=== PATIENT | female | born 1995 | race Caucasian/White ===

== ENCOUNTER 2021-04-26 18:43 | Emergency (ER) | payer BC, OTHER, SELFPAY ==
[2021-04-26 18:58] VITALS: BP 124/68; PULSE 100; RESP 18; TEMP 36.4; O2SAT 98
[2021-04-26 19:36] LABS: Basophils Percent Auto 0.4 % (0.2-1.2); Eosinophils Absolute Auto 0.1 K/mm3 (0-0.3); Hematocrit 41.6 % (37.0-47.0); Hemoglobin 13.8 g/dL (12.0-15.0); Immature Granulocyte Absolute 0.03 K/mm3 (0.00-0.031); Immature Granulocyte Percent A 0.3 % (0-0.5); Lymphocytes Absolute Auto 3.29 K/mm3 (0.9-3.2); Lymphocytes Percent Auto 32.3 % (18.3-44.2); Mean Corpuscular HGB Conc 33.2 g/dl (32-36); Mean Corpuscular Hemoglobin 28.1 pg (26-34); Mean Corpuscular Volume 84.7 fl (80-100); Mean Platelet Volume 11.3 fl (7.4-10.4); Monocytes Absolute Auto 0.8 K/mm3 (0.1-0.6); Monocytes Percent Auto 7.7 % (2.6-8.5); Neutrophils Percent Auto 58.3 % (45.5-73.1); Platelet Count Result 304 k/mm3 (150-375); Red Blood Count 4.91 M/mm3 (4.2-5.4); Red Cell Distribution Width 12.6 % (11.5-14.5); White Blood Count 10.2 K/mm3 (4.5-10.0)
[2021-04-26 19:43] LABS: Alanine Aminotransferase 26 U/L (4-35); Albumin Level 4.3 g/dL (3.5-5.1); Alkaline Phosphatase 50 U/L (38-126); Anion Gap 6 mmol/L (8-16); Aspartate Amino Transferase 22 U/L (14-36); Bilirubin,Total 0.3 mg/dL (0.2-1.3); Blood Urea Nitrogen 11 mg/dL (7-17); Calcium 9.6 mg/dL (8.4-10.2); Carbon Dioxide 30 mmol/L (22-30); Chloride 100 mmol/L (98-107); Estimated CRCL calculation 138 ml/min; Estimated Glomerular Filt Rate > 60; Glucose 122 mg/dL (65-110); Lipase 53 U/L (23-300); Potassium 3.9 mmol/L (3.4-5.0); Sodium 136 mmol/L (137-145)
[2021-04-26 20:49] VITALS: BP 124/70; PULSE 89
[2021-04-26 20:50] LABS: Add Urine Microscopic? YES; Appearance Urine Cloudy (Clear); Bilirubin Urine Negative (Negative); Blood Urine Negative (Negative); Color Urine Yellow (Yellow); Glucose Urine UA Negative (Negative); Ketones Urine Negative (Negative); Leukocyte Esterase Ur Negative LEU/UL (Negative); Mucus Urine Rare /lpf; Nitrate Urine Negative (Negative); Protein Urine Negative (Negative); RBC Urine 0-2 /hpf (0-2); Specific Grav Ur 1.018 (1.001-1.035); Squamous Epithelial Cell Urine Few /hpf (Few); Urobilinogen Urine Negative mg/dL (<2.0); WBC Urine 0-3 /hpf
[2021-04-26 20:53] VITALS: BP 129/85; PULSE 91
[2021-04-26 20:54] VITALS: BP 114/79; PULSE 96
[2021-04-26 21:52] VITALS: BP 120/67; PULSE 85; RESP 18; O2SAT 100
[2021-04-26] MEDS: SODIUM CHLORIDE 0.9% IV 1,000 ML 999 ML IV CONT (21:54)
[2021-04-26] MEDS: METOCLOPRAMIDE HCL INJ 10 MG/2 ML VIAL IV PUSH (21:55)
[2021-04-26] MEDS: diphenhydrAMINE HCl INJ 50 MG/ML VIAL 25 MG IV PUSH (21:58)
--- NOTE | 2021-04-26 23:07 | ED.GENADULT ---
HPI - General Adult General Chief complaint: Nausea/Vomiting/Diarrhea Stated complaint: throwing up everything 6 weeks preg Time Seen by Provider: 04/26/21 21:12 History of Present Illness HPI narrative: Patient is 25-year-old female presents emergency department chief complaint of nausea vomiting headache. Patient reports that she is about 6 weeks and reports that since she found out she was she has been nauseated and has not really been keeping much fluid down. The patient states she is having no abdominal pain reports she does have an appointment with [facility] patient denies vaginal bleeding. Related Data Home Medications Medication Instructions Recorded Confirmed citalopram mg 04/26/21 04/26/21 Allergies Allergy/AdvReac Type Severity Reaction Status Date / Time ARTIFICIAL RUBBER AdvReac Intermediate BLISTERS Uncoded 04/26/21 20:48 Review of Systems Review of Systems: A 10 system review of systems was completed on the patient and is negative except for what is stated in the HPI. Nursing and ancillary documentation was reviewed. [facility] Family History Family History Grandparent Family history of heart disease in male family member before age 55 Other Family history of malignant neoplasm Social History Social History Smoking status: Never smoker Exam Narrative: GENERAL: Well-appearing, well-nourished, and in no acute distress. HEAD: Normocephalic, atraumatic. EYES: PERRLA and EOMI. ENT: Nares clear, no rhinorrhea or epistaxis. Mucous membranes moist. NECK: Supple. CHEST: Clear to auscultation. No respiratory distress. HEART: Regular rate and rhythm. No murmur heard. Normal peripheral pulses. ABDOMEN: Soft, nontender, nondistended, normal active bowel sounds. EXTREMITIES: Normal range of motion. No edema. SKIN: Warm, dry, no rash. NEURO: No focal deficits. Alert and oriented x3. PSYCH: Normal mood and affect. Course Vital Signs Vital signs: Vital Signs Temperature 36.4 C 04/26/21 18:58 Pulse Rate 100 04/26/21 18:58 Respiratory Rate 18 04/26/21 18:58 Blood Pressure 124/68 04/26/21 18:58 Pulse Oximetry 98 04/26/21 18:58 Temperature 36.4 C 04/26/21 18:58 Pulse Rate 85 04/26/21 21:52 Respiratory Rate 18 04/26/21 21:52 Blood Pressure 120/67 04/26/21 21:52 Pulse Oximetry 100 04/26/21 21:52 Medical Decision Making Vital Signs Vital Signs: Vital Signs Temperature 36.4 C 04/26/21 18:58 Pulse Rate 100 04/26/21 18:58 Respiratory Rate 18 04/26/21 18:58 Blood Pressure 124/68 04/26/21 18:58 Pulse Oximetry 98 04/26/21 18:58 Temperature 36.4 C 04/26/21 18:58 Pulse Rate 85 04/26/21 21:52 Respiratory Rate 18 04/26/21 21:52 Blood Pressure 120/67 04/26/21 21:52 Pulse Oximetry 100 04/26/21 21:52 Lab Data Result diagrams: 04/26/21 19:26 04/26/21 19:26 Labs: Lab Results 04/26/21 04/26/21 04/26/21 Range/Units 19:26 19:26 20:16 WBC 10.2 H (4.5-10.0) K/mm3 RBC 4.91 (4.2-5.4) M/mm3 Hgb 13.8 (12.0-15.0) g/dL Hct 41.6 (37.0-47.0) % MCV 84.7 (80-100) fl MCH 28.1 (26-34) pg MCHC 33.2 (32-36) g/dl RDW 12.6 (11.5-14.5) % Plt Count 304 (150-375) k/mm3 MPV 11.3 H (7.4-10.4) fl Immature Gran % (Auto) 0.3 (0-0.5) % Neut % (Auto) 58.3 (45.5-73.1) % Lymph % (Auto) 32.3 (18.3-44.2) % Osborne % (Auto) 7.7 (2.6-8.5) % Eos % (Auto) 1.0 (0-4.4) % Baso % (Auto) 0.4 (0.2-1.2) % Lymph # (Auto) 3.29 H (0.9-3.2) K/mm3 Osborne # (Auto) 0.8 H (0.1-0.6) K/mm3 Eos # (Auto) 0.1 (0-0.3) K/mm3 Baso # (Auto) 0.0 (0.0-0.1) K/mm3 Abs Immat Gran (auto) 0.03 (0.00-0.031) K/mm3 Absolute Neuts (auto) 6.0 (1.3-6.7) K/mm3 Absolute Nucleated RBC 0.0 (0.0-0.012) K/mm3 Nucleated RBC %
[2021-04-26 23:31] VITALS: BP 119/50; PULSE 88; RESP 18; O2SAT 100
== END 2021-04-26 23:32 | disposition home or self-care (01) ==
PROVIDERS: Emergency Medicine; Emergency Provider Emergency Medicine; PCP Family Medicine
DX: O26.891 Other specified pregnancy related conditions, first trimester (principal); R11.2 Nausea with vomiting, unspecified; Z3A.01 Less than 8 weeks gestation of pregnancy
CPT/HCPCS: 36415; 80053; 81001; 81025; 83690; 85025; 96361; 96374; 96375; 99284; J1200; J2765; J7030

== ENCOUNTER → 2021-05-17 12:08 | Outpatient (CLI) | payer BC, SELFPAY ==
--- NOTE | ~2021-05-17 | US_ITS ---
EXAMINATION: US thyroid EXAM DATE: 05/17/2021 12:25 INDICATION: Goiter TECHNIQUE: Multiple grayscale and Doppler images of the thyroid were obtained (by a technologist who performed the scan) and subsequently reviewed. Individual nodules and recommendations may be reporte d in accordance with TI-RADS system as designated by the 2017 ACR White Paper TI-RADS committee. The re is no prior study for comparison. FINDINGS: The right thyroid lobe measures 3.9 x 1.5 x 1.4 cm, the left measuring 3.9 x 1.5 x 1.6 cm. Mildly het erogeneous thyroid echogenicity without focal discrete nodule identified. Dimensions are within zee l size limits. IMPRESSION: 1. Unremarkable thyroid ultrasound exam. Reviewed, dictated and finalized at location A. BLACKER
== END ==
PROVIDERS: PCP Family Medicine; Visit Provider Internal Medicine Endocrinology, Diabetes & Metabolism
DX: E04.9 Nontoxic goiter, unspecified (principal)
CPT/HCPCS: 76536

== ENCOUNTER 2021-09-10 12:17 | Observation (INO) | payer OTHER, BC, SELFPAY ==
--- NOTE | 2021-10-02 10:17 | PM.OBTRLD ---
OB - Triage/Final Diagnosis Visit Information Comments/Additional reasons for admission: I have assessed the risk for this patient, Shu Valentine, and determined that she would benefit from observation care. Final Diagnosis (1) Fall (on) (from) unspecified stairs and steps, initial encounter: Code(s): W10.9XXA - Fall (on) (from) unspecified stairs and steps, initial encounter Status: Acute
== END 2021-09-10 14:10 | disposition home or self-care (01) ==
PROVIDERS: Admitting Provider Obstetrics & Gynecology; PCP Family Medicine; Visit Provider Obstetrics & Gynecology
DX: O99.891 Other specified diseases and conditions complicating pregnancy (principal); W10.9XXA Fall (on) (from) unspecified stairs and steps, initial encounter; Z3A.25 25 weeks gestation of pregnancy
CPT/HCPCS: G0378; G0379

== ENCOUNTER 2021-11-14 16:47 | Outpatient (CLI) | payer OTHER, BC, SELFPAY ==
[2021-11-14 17:40] VITALS: BP 104/69; PULSE 83
[2021-11-14 17:57] LABS: Basophils Percent Auto 0.3 % (0.2-1.2); Eosinophils Percent Auto 0.4 % (0-4.4); Hematocrit 37.2 % (37.0-47.0); Hemoglobin 11.5 g/dL (12.0-15.0); Immature Granulocyte Absolute 0.03 K/mm3 (0.00-0.031); Immature Granulocyte Percent A 0.4 % (0-0.5); Lymphocytes Absolute Auto 2.05 K/mm3 (0.9-3.2); Lymphocytes Percent Auto 26.1 % (18.3-44.2); Mean Corpuscular HGB Conc 30.9 g/dl (32-36); Mean Corpuscular Hemoglobin 25.8 pg (26-34); Mean Corpuscular Volume 83.4 fl (80-100); Monocytes Absolute Auto 0.6 K/mm3 (0.1-0.6); Monocytes Percent Auto 7.4 % (2.6-8.5); Neutrophils Absolute Auto 5.1 K/mm3 (1.3-6.7); Neutrophils Percent Auto 65.4 % (45.5-73.1); Platelet Count Result 220 k/mm3 (150-375); Red Blood Count 4.46 M/mm3 (4.2-5.4); Red Cell Distribution Width 14.2 % (11.5-14.5); White Blood Count 7.8 K/mm3 (4.5-10.0)
[2021-11-14 18:00] VITALS: BP 98/62; PULSE 86; TEMP 36.3
[2021-11-14 18:05] LABS: Alanine Aminotransferase 14 U/L (6-35); Albumin Level 3.5 g/dL (3.5-5.1); Alkaline Phosphatase 109 U/L (38-126); Anion Gap 6 mmol/L (8-16); Aspartate Amino Transferase 19 U/L (14-36); Bilirubin,Total 0.1 mg/dL (0.2-1.3); Blood Urea Nitrogen 8 mg/dL (7-17); Carbon Dioxide 23 mmol/L (22-30); Chloride 106 mmol/L (98-107); Estimated Glomerular Filt Rate > 60; Glucose 85 mg/dL (65-110); Potassium 4.2 mmol/L (3.4-5.0); Sodium 135 mmol/L (137-145); Uric Acid 3.9 mg/dL (2.5-7.5)
[2021-11-14 18:15] VITALS: BP 108/66; PULSE 78
[2021-11-14 18:16] LABS: Platelet Estimate Adequate (Adequate)
[2021-11-14 18:30] VITALS: BP 110/69; PULSE 83
[2021-11-14 18:36] LABS: Appearance Urine Slightly Cloudy (Clear); Bilirubin Urine Negative (Negative); Blood Urine Negative (Negative); Color Urine Yellow (Yellow); Glucose Urine UA Negative (Negative); Ketones Urine Negative (Negative); Leukocyte Esterase Ur 2+ LEU/UL (NEGATIVE); Nitrate Urine Negative (Negative); Protein Urine Negative (Negative); Urobilinogen Urine 0.2 mg/dL (<2.0); pH Urine 6.5 (5.0-9.0)
[2021-11-14 18:45] VITALS: BP 101/66; PULSE 90
[2021-11-14 18:54] LABS: Total Protein Urine Random 7 mg/dL; Ur Ttl Prot Creatinine Ratio 0.07 mg/mg (0-0.20)
[2021-11-14 19:00] VITALS: BP 106/62; PULSE 89
[2021-11-14] MEDS: ACETAMINOPHEN/BUTALBITAL/CAFFEINE 325-50-40 MG TABLET (FIORICET) 1 TAB PO (19:10)
[2021-11-14 19:12] LABS: Bacteria Urine Trace /hpf; Budding Yeast Urine Present /hpf; Mucus Urine Rare /lpf; Squamous Epithelial Cell Urine Many /hpf (Few); WBC Urine 31-50 /hpf (0-3)
--- NOTE | 2021-11-14 19:15 | PC.NURSE ---
Investigator Internal Affairs, Cici Yao updated on PT's PCR of 0.07. Ordered to discharge PT at this time.
[2021-11-14 19:23] LABS: Add Urine Microscopic? YES
--- NOTE | 2021-11-14 19:27 | PC.NURSE ---
PT given verbal discharge instructions along with Pre-Eclampsia pamphlets. This nurse discussed pamphlets with PT and support person. This nurse also discussed early signs of labor with PT and support person. PT verbalized understanding. PT discharged home at this time.
== END 2021-11-14 19:25 | disposition home or self-care (01) ==
LOC: ANHOBOP 16:58 → ANHOBPP 17:02
PROVIDERS: Advanced Practice Midwife; PCP Family Medicine; Visit Provider Obstetrics & Gynecology
DX: O13.9 Gestational [pregnancy-induced] hypertension without significant proteinuria, unspecified trimester (principal); Z3A.00 Weeks of gestation of pregnancy not specified
CPT/HCPCS: 36415; 59025; 80053; 81001; 82570; 84156; 84550; 85025; 85055; 87086; 87088; 99199; A9270

== ENCOUNTER 2021-12-11 05:54 | Inpatient (IN) | payer OTHER, BC, SELFPAY ==
[2021-12-11] VITALS (289 sets, daily range): BP systolic 77–146; BP diastolic 34–111; PULSE 66–201; RESP 16–18; TEMP 36.3–37.8; O2SAT 90–100; BMI 38.2
--- NOTE | 2021-12-11 05:54 | LDADM ---
This patient, Shu Valentine, was admitted to Labor/Delivery/Recovery 104 on 12/11/21 at 05:54. Plans for labor, pain management and were discussed with patient. Patient/family oriented to hospital policies and general routines including ID bracelet, bed and alarms, visiting hours, pain management, procedures, bathroom and other care routines, personal items, smoking policy, room service/diet and guest tray routines, security routines, and visiting hours. Patient/Family are encouraged to report perceived risks to care and to ask questions if they do not understand what they are told or what they should do. See OBIX for further documentation.
--- OUTSIDE RECORDS SUMMARY | 2021-12-11 06:00 | XMS_ITS | Encounter Summary ---
:1995 Author Care Team Providers Name Role Phone Yanna Carlos Freitas Primary Care Provider [phone] [employer] Referring Provider [phone] Amrita Sánchez MD Referring Provider [phone] Reason for Visit OB visit Assessment and Plan Assessment Note Patient is ___weeks . Discussed plan. 1. Routine care Discussion Note: None recorded.Patient educational handouts: No information available. Plan of Care Reminders Provider Appointments None recorded. ? ? Lab None recorded. ? ? Referral None recorded. ? ? Procedures None recorded. ? ? Surgeries None recorded. ? ? Imaging None recorded. ? ? Medications Name Start Date ? ? buspirone 15 mg tablet ? TAKE 1 TABLET BY MOUTH TWICE DAILY WITH MEALS citalopram 20 mg tablet ? Take 1 tablet every day by oral route. cyclobenzaprine 5 mg tablet ? Take 1 tablet every 8 hours by oral route as needed. metoclopramide (bulk) ? ? sertraline 50 mg tablet ? TAKE 1 TABLET BY MOUTH EVERY DAY AT BEDTIME Vitamin B6 ? Wixela Inhub 250 mcg-50 mcg/dose powder for inhalation ? Inhale 1 puff twice a day by inhalation route. Medications Administered None recorded. Vitals Height Weight BMI Blood Pressure 5 ft 3 in 226 lbs 40 kg/m2 126/82 mm[Hg] Results Lab Results None recorded. Allergies None recorded. Problems Name Status Onset Date Source ? Pituitary Adenoma Active 05/08/2021 ? Hypothyroidism Active
--- OUTSIDE RECORDS SUMMARY | 2021-12-11 06:00 | XMS_ITS | Encounter Summary ---
:1995 Author Care Team Providers Name Role Phone Yanna Gonzalez Fortino Primary Care Provider [phone] [employer] Referring Provider [phone] Amrita Sánchez MD Referring Provider [phone] Reason for Visit None recorded. Assessment and Plan 1. COVID-19 ? US, obstetric, follow-up Discussion Note: None recorded.Patient educational handouts: No information available. Plan of Care Reminders Provider Appointments None recorded. ? ? Lab None recorded. ? ? Referral None recorded. ? ? Procedures None recorded. ? ? Surgeries None recorded. ? ? Imaging US, Obstetric, Follow-up 09/27/2021 Carlos ruggiero Medications Name Start Date ? ? buspirone [...] inhalation route. Medications Administered None recorded. Vitals None recorded. Results Lab Results None recorded. Allergies None recorded. Problems Name Status Onset Date Source ? Pituitary Adenoma Active 05/08/2021 ? Hypothyroidism Active 05/08/2021 ? Hyperproteinemia Active 05/08/2021 ? Active 05/31/2021 ? Covid-19 Active 06/13/2021 ?
--- OUTSIDE RECORDS SUMMARY | 2021-12-11 06:00 | XMS_ITS | Encounter Summary ---
:1995 Author Care Team Providers Name Role Phone Yanna Carlos Freitas Primary Care Provider [phone] [employer] Referring Provider [phone] Amrita Sánchez MD Referring Provider [phone] Reason for Visit OB visit Assessment and [...] BMI Blood Pressure 5 ft 3 in 225 lbs 39.9 kg/m2 124/85 mm[Hg] Results Lab Results None recorded. Allergies None recorded. Problems Name Status Onset Date Source ? Pituitary Adenoma Active 05/08/2021 ? Hypothyroidism Active
--- OUTSIDE RECORDS SUMMARY | 2021-12-11 06:00 | XMS_ITS | Encounter Summary ---
:1995 Author Care Team Providers Name Role Phone Yanna Carlos Freitas Primary Care Provider [phone] [employer] Referring Provider [phone] Amrita Sánchez MD Referring Provider [phone] Reason for Visit OB visit Assessment and [...] ft 3 in 225 lbs 39.9 kg/m2 133/81 mm[Hg] Results Lab Results None recorded. Allergies None recorded. Problems Name Status Onset Date Source ? Pituitary Adenoma Active 05/08/2021 ? Hypothyroidism Active
--- OUTSIDE RECORDS SUMMARY | 2021-12-11 06:00 | XMS_ITS | Encounter Summary ---
:1995 Author Care Team Providers Name Role Phone Riogris Carlos Freitas Primary Care Provider [phone] [employer] Referring Provider [phone] Amrita Sánchez MD Referring Provider [phone] Reason for Visit OB visit Assessment and Plan Assessment Note Patient is ___weeks . Discussed plan. 1. Katelyn thyroiditis ? TSH, serum or plasma ? T4, free, serum 2. Routine care Discussion Note: None recorded.Patient educational handouts: No information available. Plan of Care Reminders Provider Appointments None recorded. ? ? Lab TSH, Serum or Plasma 09/27/2021 [facility] (Lab) ? T4, Free, Serum 09/27/2021 [facility] (Lab) Referral None recorded. ? ? Procedures None [...] BMI Blood Pressure 5 ft 3 in 215 lbs 38.1 kg/m2 114/75 mm[Hg] Results
--- OUTSIDE RECORDS SUMMARY | 2021-12-11 06:00 | XMS_ITS ---
:1995 Author Care Team Providers Name Role Phone JR Carlos TORIBIO Primary Care Provider [phone] [employer] Referring Provider [phone] BARRY TORIBIO MD Referring Provider [phone] Allergies None recorded. Medications Name Status Start Date Stop Date ? ? buspirone 15 mg tablet Active ? Not avail able citalopram Completed ? 05/31/2021 citalopram 20 mg tablet Active ? Not avai lable cyclobenzaprine 5 mg tablet Active ? Not available metoclopramide (bulk) Active ? Not availa ble metoclopramide 10 mg tablet Completed ? 04/17 Active ? Not available sertraline 50 mg tablet Active ? Not avai lable Unisom (diphenhydramine) Completed ? 021 Vitamin B6 Active ? Not available Wixela Inhub 250 mcg-50 mcg/dose powder for inhalation Active ? Not available Problems Name Status Onset Date Source ? Pituitary Adenoma Active 05/08/2021 ? Hypothyroidism Active 05/08/2021 ? Hyperproteinemia Active 05/08/2021 ? Anxiety Unknown 05/08/2021 ? Depressive Disorder Unknown 05/08/2021 ? Asthma Unknown 05/08/2021 ? Active 05/31/2021 ? Covid-19 Active 06/13/2021 ? Disorder of Thyroid Gland Active ? ? Anxiety Active ? ? Notes: Initial endo consult on 05/15 - consult notes in chart. F/u endo appt on 06/05/21 Procedures Date Name Performed by ? 03/20/2021 MRI, Pituitary, W/wo Contrast [address] [place] [phone]
--- OUTSIDE RECORDS SUMMARY | 2021-12-11 06:00 | XMS_ITS | Encounter Summary ---
:1995 Author Care Team Providers Name Role Phone Yanna Gonzalez Fortino Primary Care Provider [phone] [employer] Referring Provider [phone] Amrita Sánchez MD Referring Provider [phone] Reason for Visit None recorded. Assessment and Plan 1. Pre-existing maternal disease compli cating ? US, obstetric, follow-up Discussion Note: None recorded.Patient educational handouts: No information available. Plan of Care Reminders Provider Appointments None recorded. ? ? Lab None recorded. ? ? Referral None recorded. ? ? Procedures None recorded. ? ? Surgeries None recorded. ? ? Imaging US, Obstetric, Follow-up 10/18/2021 Carlos ruggiero Medications Name Start Date ? [...]
--- OUTSIDE RECORDS SUMMARY | 2021-12-11 06:00 | XMS_ITS ---
:1995 Author Care Team Providers Name Role Phone JR TORIBIO Primary Care Provider [phone] Allergies Code Code System Name Reaction Severity Status Onset NKDA ? Notes: Some allergies listed in Docume nt: #[id number] could not be added to this patient's chart. Please review this docu ment and add these allergies to the patient's chart manually as needed. Medications Name Status Start Date Stop Date ? ? buspirone 15 mg tablet Active ? Not avail able citalopram 20 mg tablet Active ? Not avai lable metoclopramide 10 mg tablet Completed ? 05/17 Problems None recorded. Procedures Date Name Performed by ? 05/15/2021 US, Thyroid [facility] [address] [place] [address] (Work Place) Results Lab Results Date Name Specimen Result Interpretation Description Value Range Status Address ? 05/15/2021 Free T4, Quantitative, ? No observation rec orded. ? ? ? Dialysis Serum or Plasma 05/15/2021 CMP, Serum or Plasma ? No observation recor ded. ? ? ? Past Encounters 06/05/2021 Normal ; Katelyn Thyroiditis Amrita Sánchez MD: [address] [place] [phone], Ph. 05/15/2021 Hyperprolactinemia; Family History of Th yroid Disorder; Goiter Amrita Sánchez MD: [address] [place] [phone], Ph. Social History Tobacco Smoking Status Never Smoker Vaccine List None recorded. Plan of Care
--- OUTSIDE RECORDS SUMMARY | 2021-12-11 06:00 | XMS_ITS | Encounter Summary ---
:1995 Author Care Team Providers Name Role Phone Yanna Gonzalez Fortino Primary Care Provider [phone] [employer] Referring Provider [phone] Amrita Sánchez MD Referring Provider [phone] Reason for Visit None recorded. Assessment and Plan 1. Routine care Discussion Note: None recorded.Patient [...] ft 3 in 226 lbs 40 kg/m2 122/80 mm[Hg] Results Lab Results None recorded. Allergies None recorded. Problems Name Status Onset Date Source ? Pituitary Adenoma Active 05/08/2021 ? Hypothyroidism Active 05/08/2021 ? Hyperproteinemia Active 05/08/2021 ? Active 05/31/2021 ?
--- OUTSIDE RECORDS SUMMARY | 2021-12-11 06:00 | XMS_ITS | Encounter Summary ---
:1995 Author Care Team Providers Name Role Phone Yanna Carlos Freitas Primary Care Provider [phone] [employer] Referring Provider [phone] Amrita Sánchez MD Referring Provider [phone] Reason for Visit OB visit Assessment and [...] BMI Blood Pressure 5 ft 3 in 219 lbs 38.8 kg/m2 111/73 mm[Hg] Results Lab Results None recorded. Allergies None recorded. Problems Name Status Onset Date Source ? Pituitary Adenoma Active 05/08/2021 ? Hypothyroidism Active
--- OUTSIDE RECORDS SUMMARY | 2021-12-11 06:00 | XMS_ITS | Encounter Summary ---
:1995 Author Care Team Providers Name Role Phone Yanna Carlos Freitas Primary Care Provider [phone] [employer] Referring Provider [phone] Amrita Sánchez MD Referring Provider [phone] Reason for Visit OB visit Assessment and Plan Assessment Note Patient is ___weeks . Discussed plan. 1. Asthma in ? Advair Diskus 250 mcg-50 mcg/dose pow [place] for inhalation Discussion Note: None recorded.Patient educational handouts: No [...] BMI Blood Pressure 5 ft 3 in 217 lbs 38.4 kg/m2 130/78 mm[Hg] Results Lab Results None recorded. Allergies None recorded. Problems Name Status Onset Date Source ?
--- OUTSIDE RECORDS SUMMARY | 2021-12-11 06:00 | XMS_ITS | Encounter Summary ---
:1995 Author Care Team Providers Name Role Phone Yanna Carlos Freitas Primary Care Provider [phone] [employer] Referring Provider [phone] Amrita Sánchez MD Referring Provider [phone] Reason for Visit OB visit Assessment and [...] ft 3 in 225 lbs 39.9 kg/m2 122/74 mm[Hg] Results Lab Results None recorded. Allergies None recorded. Problems Name Status Onset Date Source ? Pituitary Adenoma Active 05/08/2021 ? Hypothyroidism Active
--- OUTSIDE RECORDS SUMMARY | 2021-12-11 06:00 | XMS_ITS | Encounter Summary ---
:1995 Author Care Team Providers Name Role Phone Yanna Carlos Freitas Primary Care Provider [phone] [employer] Referring Provider [phone] Amrita Sánchez MD Referring Provider [phone] Reason for Visit None recorded. Assessment and Plan 1. Pre-existing maternal disease compli cating ? US, obstetric, follow-up Discussion Note: None recorded.Patient educational handouts: No information available. Plan of Care Reminders Provider Appointments None recorded. ? ? Lab None recorded. ? ? Referral None recorded. ? ? Procedures None recorded. ? ? Surgeries None recorded. ? ? Imaging US, Obstetric, Follow-up 11/22/2021 Carlos ruggiero Medications Name Start Date ? [...] Active 05/08/2021 ? Active 05/31/2021 ? Covid-19 Activ
[2021-12-11 06:57] LABS: Basophils Percent Auto 0.2 % (0.2-1.2); Eosinophils Percent Auto 0.4 % (0-4.4); Hematocrit 40.6 % (37.0-47.0); Hemoglobin 12.7 g/dL (12.0-15.0); Immature Granulocyte Absolute 0.04 K/mm3 (0.00-0.031); Immature Granulocyte Percent A 0.5 % (0-0.5); Immature Platelet Fraction Pct 20.1 % (0.9-11.2); Lymphocytes Absolute Auto 2.42 K/mm3 (0.9-3.2); Lymphocytes Percent Auto 30.1 % (18.3-44.2); Mean Corpuscular HGB Conc 31.3 g/dl (32-36); Mean Corpuscular Hemoglobin 25.3 pg (26-34); Mean Corpuscular Volume 80.9 fl (80-100); Mean Platelet Volume 13.5 fl (7.4-10.4); Monocytes Absolute Auto 0.5 K/mm3 (0.1-0.6); Monocytes Percent Auto 6.1 % (2.6-8.5); Neutrophils Absolute Auto 5.1 K/mm3 (1.3-6.7); Neutrophils Percent Auto 62.7 % (45.5-73.1); Platelet Count Result 213 k/mm3 (150-375); Red Blood Count 5.02 M/mm3 (4.2-5.4); Red Cell Distribution Width 15.2 % (11.5-14.5); White Blood Count 8.1 K/mm3 (4.5-10.0)
[2021-12-11] MEDS: LACTATED RINGERS 1,000 ML 125 ML IV CONT ×6 (06:58→22:35)
[2021-12-11] MEDS: OXYTOCIN 30 UNITS/NS 500 ML 30 UNITS/500 ML BAG 6 UNITS IV CONT (06:58)
--- NOTE | 2021-12-11 07:30 | WPDHPUPDATE1 ---
History and Physical Update Update Date/Time: 12/11/21 07:30 this patient is a 26-year-old 1 at 39 weeks gestation presents for elective induction of labor. AROM was performed. She is 1 cm 50% and -3. To begin Pitocin induction. There was clear fluid on AROM. Expected to have an epidural, expectant management. History and Physical has been reviewed, including an updated exam of the patient. There are NO changes in the patient's condition. Risks, benefits, and alternatives have been discussed and questions answered. Patient agrees to proceed with procedure.
[2021-12-11 08:24] LABS: Rapid Plasma Reagin Non-Reactive (NonReactive)
[2021-12-12] VITALS (61 sets, daily range): BP systolic 94–144; BP diastolic 55–109; PULSE 82–128; RESP 16–20; TEMP 36.2–37.3; O2SAT 99–100
[2021-12-12] MEDS: LACTATED RINGERS 1,000 ML 125 ML IV CONT
[2021-12-12] MEDS: ONDANSETRON INJ 4 MG/2 ML VIAL IV PUSH (02:04)
--- NOTE | 2021-12-12 03:12 | PM.OBPRVD ---
OB - Delivery Note Procedure Procedure: Induction method: AROM and Per Pitocin Protocol Delivery monitor: External FHT and Internal Uterine Route of delivery: Laceration Description: None Specimen: No Anesthesia type: Epidural Disposition: Floor Baby Date of : 12/12/21 Time of : 02:58 Weeks of gestation at delivery: 39 Weight (pounds): 8 Weight (ounces): 12 presentation: vertex Placenta delivery description: Spontaneous Cord Vessel Description: 3 Vessels score one minute: 7 score five minutes: 7
[2021-12-12] MEDS: OXYTOCIN 30 UNITS/NS 500 ML 30 UNITS/500 ML BAG 125 UNITS IV CONT (03:18)
[2021-12-12] MEDS: ACETAMINOPHEN 325 MG TABLET 650 MG (03:25)
[2021-12-12] MEDS: IBUPROFEN 600 MG TABLET PO ×3 (04:53→19:09)
--- NOTE | 2021-12-12 07:30 | PC.NURSE ---
Pt to Level II nursery per wheelchair to see . Pt tearful. in attendance.
[2021-12-12] MEDS: ACETAMINOPHEN 325 MG TABLET 650 MG PO ×2 (07:34→16:45)
[2021-12-12] MEDS: MULTIVIT/MIN/PREN/FOL AC/IRON TABLET 1 TAB PO (09:02)
[2021-12-12] MEDS: busPIRone HCL 5 MG TABLET 15 MG PO ×2 (09:03→16:45)
[2021-12-12] MEDS: WITCH HAZEL 40 PADS 1 PAD TOPICAL (09:04)
[2021-12-12] MEDS: SERTRALINE HCL 50 MG TABLET PO (09:04)
[2021-12-12] MEDS: BENZOCAINE 20% AER SPR (*SP) 56 GM CAN 1 SPRAY TOPICAL (09:04)
--- NOTE | 2021-12-12 10:15 | PC.NURSE ---
Assisted pt with breast pump. Instructed to pump at least every 3 hrs during the day and at least once in the middle of the night so she pumps 7-8 times per day to establish a milk supply.
[2021-12-12] MEDS: DOCUSATE SODIUM 100 MG CAPSULE PO ×2 (12:30→16:45)
--- NOTE | 2021-12-12 14:15 | OBPPTRN ---
Patient transferred to post room #280 via wheelchair. Support person present. Oriented to unit, room, information board Patient verbalizes understanding. Baby has been transferred to [facility] and mother is very tearful and upset. Discussed with mother the importance of eating, getting plenty of rest and pumping to stimulate for her milk to come in. Mother states she has not pumped since early this morning, asked if she would like to pump now and she states she is too tired and only wants to sleep. Again I stressed the importance of pumping to stimulate milk production, mother verbalized understanding but states she does not feel like pumping at this time.
--- NOTE | 2021-12-12 16:50 | PC.NURSE ---
Patient states she has pumped twice but did not get anything out. Discussed that when she is pumping its ok to not produce anything at this time, she is stimulating the breast and telling her body to start producing milk. Discussed pumping on a schedule of every three hours to stimulate, she verbalizes understanding.
[2021-12-13 06:06] LABS: Hematocrit 29.9 % (37.0-47.0); Hemoglobin 9.2 g/dL (12.0-15.0)
[2021-12-13 08:00] VITALS: BP 127/74; PULSE 100; RESP 16; TEMP 36.6; O2SAT 100
--- NOTE | 2021-12-13 08:00 | PC.NURSE ---
Pt introductions made and plan of care discussed per post , pain management, breast pumping, baby at [facility] and pending discharge to home. PT and mother both received instructions and no barriers to learning identified at this time. PT received such instructions this shift via one to one discussion, mom baby care guide and demonstrations. PT verbalized understanding of such care.
--- NOTE | 2021-12-13 08:06 | PM.OBPNVD ---
OB - PN: Subj Subjective Date/time seen: 12/13/21 08:06 Patient comments: no complaints, pain well controlled, incisional pain, tolerating diet and flatus present OB - PN: Obj Data Labs CBC & Chem 7: 12/13/21 05:37 Labs: Laboratory Results - last 24 hr 12/13/21 05:37 Hgb 9.2 L D Hct 29.9 L OB - PN A/P Plan day: 1 Plan: routine care Comments: No problems, routine care Time Spent With Patient Time: Total time spent is greater than 50% in coordination of care (as documented) at patient's floor/unit and/or counseling patient: Exam Const: General: comfortable, no acute distress and alert Resp: Effort & Inspection: normal respiratory effort Auscultation: no crackles, no rales and no rhonchi Cardio: Rate: regular rate Heart sounds: no click, no murmurs and no rubs GI: Inspection: non-distended GI Palp: No Tenderness to palpation present (GI) Auscultation: normal bowel sounds Other: Incision - CDI Extrem: General: normal to inspection, no pedal edema and no calf tenderness
--- NOTE | 2021-12-13 08:07 | PM.OBDSVD ---
DS: Admitting Diagnosis Discharge Date 12/13/21 Admitting Diagnosis term gestation OB - DS: Summary OB Procedures : None OB Procedures Intrapartum: Spontaneous Vag Delivery OB Procedures: : None Time Spent with Patient Time attestation: Total time spent providing and/or coordinating discharge services: DS: Data Data Completed and Pending Labs on day of discharge: Labs from last 24 hours 12/13/21 05:37 Hgb 9.2 L D Hct 29.9 L Discharge Plan Discharge Discharging Clinician: Shandra Lamas Patient Disposition: Home, Self-Care Activity: pelvic rest Diet: regular Patient Instructions: Antibiotic Form Stand Alone Forms: General Discharge Information Follow-up/Referrals: Shandra Lamas MD [Physician] - Discharge Medications: Continued sertraline 50 mg Tablet 50 mg PO DAILY buspirone 15 mg Tablet 15 mg PO BID #2 Tablet 1 tablet PO DAILY Date of admission: 12/11/21 05:54 Primary Care Provider: Brittni,Yanna Harper Admitting Provider: Shandra Lamas Attending physician on admission: Shandra Lamas Condition: Stable
[2021-12-13 08:36] VITALS: PULSE 100; RESP 16; O2SAT 100
[2021-12-13] MEDS: busPIRone HCL 5 MG TABLET 15 MG PO (08:36)
[2021-12-13] MEDS: DOCUSATE SODIUM 100 MG CAPSULE PO (08:36)
[2021-12-13] MEDS: SERTRALINE HCL 50 MG TABLET PO (08:36)
[2021-12-13] MEDS: IBUPROFEN 600 MG TABLET PO (08:36)
[2021-12-13] MEDS: LANOLIN (LANSINOH) 7.5 GM CREAM 1 APPLIC TOPICAL (08:36)
[2021-12-13] MEDS: MULTIVIT/MIN/PREN/FOL AC/IRON TABLET 1 TAB PO (08:37)
[2021-12-13] MEDS: POLYSACCHARIDE IRON COMPLEX 150 MG CAPSULE PO (08:37)
--- NOTE | 2021-12-13 09:56 | WPDANLDPN2 ---
Anes-Prog Note L&D Date/Time: 12/13/21 09:56 Comfortable throughout: labor and delivery Neuraxial method: epidural Epidural/Spinal procedure site: clean & non-tender Neuro status: Neuro function grossly intact. Cardiovascular status: normal Respiratory status: normal Airway patency: baseline Vital Signs: Last Vital Signs Temp 36.2 C L 12/12/21 19:05 Pulse 89 12/12/21 19:05 Resp 20 12/12/21 19:05 BP 117/67 12/12/21 19:05 Pulse Ox 99 12/12/21 16:50 O2 Del Method Room Air 12/11/21 18:22 Pain score (VAS): 1 I/O: Intake & Output 12/12/21 12/13/21 12/13/21 23:59 07:59 15:59 Intake Total 240 Balance 240 Patient feedback: Patient satisfied with anesthetic care.
--- NOTE | 2021-12-13 16:11 | PC.NURSE ---
[phone] Mother led the conversation with her experience and plan to feed her infant. has been transferred to [facility] and mother has been pumping her breast. Encouraged mother to be consistent with pumping 8 times in 24 hours (every 3 hours) and to work with her resources at [facility]. Mother voiced understanding of the education shared. Primary RN is present preparing to discharge patient.
== END 2021-12-13 10:00 | disposition home or self-care (01) | DRG 807 ==
LOC: ANHLDR 12-12 08:49 → ANHOB2 12-12 14:21
PROVIDERS: Admitting Provider Obstetrics & Gynecology; PCP Family Medicine; Visit Provider Obstetrics & Gynecology
DX: O69.81X0 Labor and delivery complicated by cord around neck, without compression, not applicable or unspecified (principal); Z37.0 Single live birth; Z3A.39 39 weeks gestation of pregnancy; O36.8330 Maternal care for abnormalities of the fetal heart rate or rhythm, third trimester, not applicable or unspecified; O99.344 Other mental disorders complicating childbirth; F41.9 Anxiety disorder, unspecified; F32.A Depression, unspecified
CPT/HCPCS: 36415; 85014; 85018; 85025; 85055; 86592; 86850; 86900; 86901; A9270; J0131; J2405; J2590; J2795; J7120

== ENCOUNTER 2021-12-15 22:09 | Emergency (ER) | payer OTHER, BC, SELFPAY ==
[2021-12-15 22:21] VITALS: BP 126/77; PULSE 81; RESP 17; TEMP 36.4; O2SAT 100
--- NOTE | 2021-12-15 23:09 | ED.FEMALEGU ---
HPI - Female Genitourinary General Chief complaint: Vaginal Bleeding <DREAD Pablo Last Filed: 12/16/21 00:59> Stated complaint: vaginal bleeding, vaginal 12/12/21 <DREAD Pablo Last Filed: 12/16/21 00:59> Time Seen by Provider: 12/15/21 22:42 <DREAD Pablo Last Filed: 12/16/21 00:59> Source: patient <DREAD Pablo Last Filed: 12/16/21 00:59> Mode of arrival: ambulatory <DREAD Pablo Last Filed: 12/16/21 00:59> Limitations: no limitations <DREAD Pablo Last Filed: 12/16/21 00:59> History of Present Illness HPI Narrative: This is a 26-year-old female that presents to the emergency department for vaginal bleeding. Reports she had a vaginal delivery 3 days ago. Tonight after she was pumping she passed a very large blood clot. Reports her bleeding seemed to increase quite a lot after that which concerned her and prompted her to be seen. Reports very manageable pelvic cramping. Denies fever or vomiting. <DREAD Pablo Last Filed: 12/16/21 00:59> Related Data Home medications: Home Medications Medication Instructions Recorded Confirmed buspirone 15 mg tablet 15 mg PO BID 11/19/21 11/19/21 prenat.vits,emmanuel,ycb-jhdg-ehixa 1 tablet PO DAILY 11/19/21 12/11/21 sertraline 50 mg tablet 50 mg PO DAILY 11/19/21 12/11/21 <DREAD Pablo Last Filed: 12/16/21 00:59> Allergies/Adverse reactions: Allergies Allergy/AdvReac Type Severity Reaction Status Date / Time ARTIFICIAL RUBBER AdvReac Intermediate BLISTERS Uncoded 12/15/21 22:24 <DREAD Pablo Last Filed: 12/16/21 00:59> Review of Systems Review of Systems: CONSTITUTIONAL: Denies fever GASTROINTESTINAL: Reports pelvic cramping <DREAD Pablo Filed: 12/16/21 00:59> All systems reviewed & are unremarkable except as noted in HPI and below <Emily Soares PA-C - Last Filed: 12/16/21 00:59> PMFSH Past Medical History Medical History: Medical History (Updated 12/16/21 @ 00:56 by Emily Soares PA-C) History of anxiety <Emily Soares PA-C - Last Filed: 12/16/21 00:59> Family History Family History: Family History (Updated 11/19/21 @ 13:56 by Ann Marie Corea RN) Grandparent Family history of heart disease in male family member before age 55 Father Colon cancer Other Family history of malignant neoplasm Patient's father is <Emily Soares PA-C - Last Filed: 12/16/21 00:59> Social History Social History: Social History Smoking status: Never smoker Substance use: never Spiritual care concerns: No <Emily Soares PA-C - Last Filed: 12/16/21 00:59> Exam Narrative: GENERAL: Well-appearing, well-nourished, and in no acute distress. HEAD: Normocephalic, atraumatic. EYES: EOMI. CHEST: Clear to auscultation. No respiratory distress. No wheezes rales or rhonchi HEART: Regular rate and rhythm. No murmur heard. Normal peripheral pulses. ABDOMEN: Soft, nontender, nondistended, normal active bowel sounds. EXTREMITIES: Normal range of motion. No edema. SKIN: Warm, dry, no rash. NEURO: No focal deficits. Alert and oriented x3. PSYCH: Normal mood and affect FEMALE GENITAL: Normal external genitalia. Small amount of blood slowly oozing from the vagina <Emily Soares PA-C - Last Filed: 12/16/21 00:59> Course S[employer]IOR [employer] DBA/PA Physician Supervision For this patient encounter, I reviewed the S[employer]IOR [employer] DBA or PA documentation, treatment plan, and medical decision making <Colin Bray MD - Last Filed: 12/16/21 02:02> Consultations Consultation #1: Spoke with Dr. Lamas about patient and work-up who will follow-up in clinic <Emily Soares PA-C - Last Filed: 12/16/21 00:59> Date: 12/16/21 <Emily Soares PA-C - Last Filed: 12/16/21 00:59> Time: 00:30 <Emily Soares PA-C - Last File
[2021-12-15 23:23] VITALS: BP 130/76; PULSE 78
[2021-12-15 23:24] VITALS: BP 125/78; PULSE 77
[2021-12-15 23:25] VITALS: BP 130/71; PULSE 81
[2021-12-15 23:45] LABS: Basophils Percent Auto 0.3 % (0.2-1.2); Eosinophils Absolute Auto 0.2 K/mm3 (0-0.3); Eosinophils Percent Auto 1.5 % (0-4.4); Hematocrit 28.9 % (37.0-47.0); Hemoglobin 9.1 g/dL (12.0-15.0); Immature Granulocyte Absolute 0.09 K/mm3 (0.00-0.031); Immature Granulocyte Percent A 0.9 % (0-0.5); Lymphocytes Absolute Auto 2.84 K/mm3 (0.9-3.2); Lymphocytes Percent Auto 27.3 % (18.3-44.2); Mean Corpuscular HGB Conc 31.5 g/dl (32-36); Mean Corpuscular Hemoglobin 25.9 pg (26-34); Mean Corpuscular Volume 82.1 fl (80-100); Mean Platelet Volume 12.2 fl (7.4-10.4); Monocytes Absolute Auto 0.7 K/mm3 (0.1-0.6); Monocytes Percent Auto 7.1 % (2.6-8.5); Neutrophils Absolute Auto 6.6 K/mm3 (1.3-6.7); Neutrophils Percent Auto 62.9 % (45.5-73.1); Platelet Count Result 274 k/mm3 (150-375); Red Blood Count 3.52 M/mm3 (4.2-5.4); Red Cell Distribution Width 15.8 % (11.5-14.5); White Blood Count 10.4 K/mm3 (4.5-10.0)
[2021-12-15 23:55] LABS: Alanine Aminotransferase 152 U/L (6-35); Albumin Level 3.7 g/dL (3.5-5.1); Alkaline Phosphatase 111 U/L (38-126); Anion Gap 7 mmol/L (8-16); Appearance Urine Clear (Clear); Aspartate Amino Transferase 107 U/L (14-36); Bilirubin Urine Negative (Negative); Bilirubin,Total 0.2 mg/dL (0.2-1.3); Blood Urea Nitrogen 14 mg/dL (7-17); Blood Urine 3+ (Negative); Calcium 8.9 mg/dL (8.4-10.2); Carbon Dioxide 25 mmol/L (22-30); Chloride 104 mmol/L (98-107); Estimated Glomerular Filt Rate > 60; Glucose 80 mg/dL (65-110); Glucose Urine UA Negative (Negative); Ketones Urine Negative (Negative); Leukocyte Esterase Ur 3+ LEU/UL (Negative); Nitrate Urine Negative (Negative); Potassium 3.7 mmol/L (3.4-5.0); Protein Urine 1+ mg/dL (Negative); Sodium 136 mmol/L (137-145); Specific Grav Ur 1.015 (1.001-1.035); Urobilinogen Urine 0.2 mg/dL (<2.0)
[2021-12-15 23:59] LABS: Bacteria Urine 1+ /hpf; Mucus Urine Rare /lpf; RBC Urine >75 /hpf (0-2); Squamous Epithelial Cell Urine Rare /hpf (Few); WBC Urine >75 /hpf
[2021-12-16] LABS: Add Urine Microscopic? YES; Color Urine Light Red (Yellow); Prothrombin Time 12.3 Seconds (11.1-14.7)
[2021-12-16 00:01] LABS: Partial Thromboplastin Time 26.8 SECONDS (22.3-36.8)
[2021-12-16 01:13] VITALS: BP 131/84; PULSE 83; RESP 18; O2SAT 99
== END 2021-12-16 01:03 | disposition home or self-care (01) ==
PROVIDERS: Physician Assistant; Emergency Provider Emergency Medicine; PCP Family Medicine
DX: O72.2 Delayed and secondary postpartum hemorrhage (principal); O99.345 Other mental disorders complicating the puerperium; F41.9 Anxiety disorder, unspecified; O72.1 Other immediate postpartum hemorrhage
CPT/HCPCS: 36415; 80053; 81001; 85025; 85610; 85730; 86850; 86900; 86901; 87086; 87088; 99283

== ENCOUNTER 2023-06-19 13:24 | Outpatient (RCR) | payer BC, SELFPAY | END 2023-09-08 08:23 | disposition home or self-care (01) | LOC: ANHDMC 13:24 | PROVIDERS: PCP Family Medicine; Visit Provider Obstetrics & Gynecology | DX: O24.319 Unspecified pre-existing diabetes mellitus in pregnancy, unspecified trimester (principal); Z3A.00 Weeks of gestation of pregnancy not specified; Z71.89 Other specified counseling | CPT/HCPCS: G0108 ==

== ENCOUNTER 2023-08-07 15:13 | Outpatient (RCR) | payer BC, SELFPAY ==
[2023-06-28 13:51] VITALS: BP 109/78; PULSE 100
[2023-07-05 13:01] VITALS: BP 117/62; PULSE 109
[2023-07-12 13:00] VITALS: BP 120/64; PULSE 75
[2023-07-19 14:36] VITALS: BP 119/70; PULSE 105
[2023-07-20 17:54] VITALS: BP 99/61; PULSE 110
[2023-07-26 13:54] VITALS: BP 124/68; PULSE 99
[2023-08-02 13:06] VITALS: BP 118/70; PULSE 85
--- NOTE | ~2023-08-07 | US_ITS ---
EXAMINATION: US OB BPP wo non-stress DATE: 07/19/2023 14:18 INDICATION: BPP, GDM . TECHNIQUE: Real-time ultrasound of the pelvis was performed. COMPARISON: None. FINDINGS: There is a single living fetus in vertex presentation, longitudinal lie. The placenta is posterior. heart rate is 144 bpm. Deepest vertical amniotic fluid pocket 6.8 cm. Biophysical profile performed by the technologist: breathing (30 sec sustained breathing in 30 minutes): 2 out of 2. movement (3 gross body movements in 30 minutes: 2 out of 2. tone (one episode of piblncc-wvlmkffdg-tpwmntu limb movement): 2 out of 2. Amniotic fluid pocket (2 cm): 2 out of 2. Total score: 8 out of 8. IMPRESSION: Single living fetus in vertex presentation. Biophysical profile 8 out of 8. Reviewed, dictated and finalized at location K. ER CARD ROOM
--- NOTE | 2023-08-07 15:43 | PC.NURSE ---
Called and spoke with Dr. Kamara, informed of FHT and good movement. MD gave discharge orders at this time. Orders to schedule patient for IOL on Friday or Friday for GDM. RN repeated orders back to confirm.
[2023-08-07 15:44] VITALS: BP 122/74; PULSE 109
== END 2023-09-26 23:59 | disposition home or self-care (01) ==
LOC: ANHOBOP 15:13
PROVIDERS: PCP Family Medicine; Visit Provider Obstetrics & Gynecology
DX: O24.419 Gestational diabetes mellitus in pregnancy, unspecified control (principal); Z3A.32 32 weeks gestation of pregnancy; Z3A.33 33 weeks gestation of pregnancy; Z3A.34 34 weeks gestation of pregnancy; Z3A.35 35 weeks gestation of pregnancy; Z3A.36 36 weeks gestation of pregnancy; O36.8330 Maternal care for abnormalities of the fetal heart rate or rhythm, third trimester, not applicable or unspecified; Z3A.37 37 weeks gestation of pregnancy
CPT/HCPCS: 59025; 76819

== ENCOUNTER 2023-08-09 22:36 | Observation (INO) | payer BC, SELFPAY ==
--- NOTE | 2023-08-09 23:00 | PC.NURSE ---
CERVICAL EXAM 1 CM THICK BALLOTABLE
[2023-08-09 23:13] LABS: Glucose Point of Care 89 mg/dl (65-105)
--- NOTE | 2023-08-10 | PC.NURSE ---
0000- UC Eval: 2-5 minutes 35-115 seconds Mild Strength Soft Resting Tone FHR: Baseline 115 Moderate Variability + Accels (15x15) - Decels
--- NOTE | 2023-08-10 | PC.NURSE ---
DR. ARANGO RESPONDED TO PAGE. INFORMED ABOUT PT ARRIVAL AND CURRENT PT STATUS (HEADACHE, CERVICAL EXAM, CONTRACTIONS). ORDERS RECEIVED TO GIVE THE PT 2 TABS FIORICET AND D/C HOME IF THE PT IS FEELING BETTER.
[2023-08-10] MEDS: ACETAMINOPHEN/BUTALBITAL/CAFFEINE 325-50-40 MG TABLET (FIORICET) 2 TAB (00:19)
[2023-08-10 00:26] VITALS: BMI 41.5
--- NOTE | 2023-08-10 01:00 | PC.NURSE ---
0100- UC Eval: 2.5-7.5 Minutes 33-73 seconds Mild Strength Soft Resting Tone FHR: Baseline 120 Moderate Variability + 15x15 Accels -Decels
--- NOTE | 2023-08-10 02:00 | PC.NURSE ---
0200 Eval: 1.5-44 minutes 36-72 seconds Mild Strength Soft Resting Tone FHR: Baseline 115 Moderate Variability +15x15 Accels -Decels
[2023-08-10 02:34] VITALS: BMI 41.5
--- NOTE | 2023-08-10 03:00 | PC.NURSE ---
Addendum entered by Patience Hdez RN 08/10/23 04:33: Time stamp should state 0228 Original Note: 0300 UC Eval: 2.5-5 Minutes 30-45 Seconds Mild Strength Soft Resting Tone FHR: Baseline 115 Moderate Variability +15x15 Accels -Decels
--- NOTE | 2023-08-12 11:52 | PM.OBTRLD ---
OB - Triage/Final Diagnosis Visit Information Comments/Additional reasons for admission: I have assessed the risk for this patient, Shu Valentine, and determined that she would benefit from observation care. Evaluation Laboratory results: Laboratory Tests 08/09/23 23:10 POC Capillary Glucose 89 Final Diagnosis (1) Headache: Code(s): R51.9 - Headache, unspecified Status: Acute
== END 2023-08-10 02:50 | disposition home or self-care (01) ==
PROVIDERS: Admitting Provider Obstetrics & Gynecology; PCP Family Medicine; Visit Provider Obstetrics & Gynecology
DX: O26.893 Other specified pregnancy related conditions, third trimester (principal); R51.9 Headache, unspecified; O24.419 Gestational diabetes mellitus in pregnancy, unspecified control; Z3A.38 38 weeks gestation of pregnancy
CPT/HCPCS: 82948; A9270; G0378; G0379

== ENCOUNTER 2023-08-12 15:58 | Inpatient (IN) | payer BC, SELFPAY ==
[2023-08-12] VITALS (12 sets, daily range): BP systolic 81–135; BP diastolic 55–116; PULSE 98–112; TEMP 36.3–36.4; BMI 39.0
--- NOTE | 2023-08-12 16:31 | LDADM ---
This patient, Shu Valentine, was admitted to Labor/Delivery/Recovery 103 on 08/12/23 at 15:58. Plans for labor, pain management and were discussed with patient. Patient/family oriented to hospital policies and general routines including ID bracelet, bed and alarms, visiting hours, pain management, procedures, bathroom and other care routines, personal items, smoking policy, room service/diet and guest tray routines, security routines, and visiting hours. Patient/Family are encouraged to report perceived risks to care and to ask questions if they do not understand what they are told or what they should do. See OBIX for further documentation.
[2023-08-12 16:48] LABS: Basophils Percent Auto 0.1 % (0.2-1.2); Eosinophils Percent Auto 0.1 % (0-4.4); Hematocrit 33.6 % (37.0-47.0); Hemoglobin 10.7 g/dL (12.0-15.0); Immature Granulocyte Absolute 0.03 K/mm3 (0.00-0.031); Immature Granulocyte Percent A 0.4 % (0-0.5); Lymphocytes Absolute Auto 2.08 K/mm3 (0.9-3.2); Mean Corpuscular HGB Conc 31.8 g/dl (32-36); Mean Corpuscular Hemoglobin 25.5 pg (26-34); Mean Corpuscular Volume 80.2 fl (80-100); Mean Platelet Volume 12.8 fl (7.4-10.4); Monocytes Absolute Auto 0.5 K/mm3 (0.1-0.6); Monocytes Percent Auto 6.6 % (2.6-8.5); Neutrophils Absolute Auto 5.1 K/mm3 (1.3-6.7); Neutrophils Percent Auto 65.8 % (45.5-73.1); Platelet Count Result 219 k/mm3 (150-375); Red Blood Count 4.19 M/mm3 (4.2-5.4); White Blood Count 7.7 K/mm3 (4.5-10.0)
[2023-08-12 16:57] LABS: Glucose Point of Care 112 mg/dl (65-105)
--- NOTE | 2023-08-12 16:59 | WPDANESEPP ---
Anes - Eval Pre Procedure Procedure: Labor epidural Date/Time: 08/12/23 16:59 Surgeon: Asad Preop Diagnosis: Abdominal pain with contractions Pre Op Diagnosis: IOL Patient Data Age: 28 Gender: F Height: 1.6 m Weight: 100 kg Last Vital Signs Pulse 112 H 08/12/23 16:55 BP 81/61 L 08/12/23 16:55 O2 Del Method Room Air 08/12/23 16:29 Allergies Allergy/AdvReac Type Severity Reaction Status Date / Time ARTIFICIAL RUBBER AdvReac Intermediate BLISTERS Uncoded 08/10/23 00:26 Home Medications Medication Instructions Recorded Confirmed Type prenat.vits,emmanuel,jkc-jhsv-meskl 1 tablet PO DAILY 11/19/21 08/07/23 History sertraline 50 mg tablet 100 mg PO DAILY 11/19/21 08/07/23 History Laboratory Tests 08/12/23 08/12/23 16:23 16:50 WBC 7.7 K/mm3 (4.5-10.0) RBC 4.19 L M/mm3 (4.2-5.4) Hgb 10.7 L g/dL (12.0-15.0) Hct 33.6 L % (37.0-47.0) MCV 80.2 fl (80-100) MCH 25.5 L pg (26-34) MCHC 31.8 L g/dl (32-36) RDW 15.0 H % (11.5-14.5) Plt Count 219 k/mm3 (150-375) MPV 12.8 H fl (7.4-10.4) Immature Gran % (Auto) 0.4 % (0-0.5) Neut % (Auto) 65.8 % (45.5-73.1) Lymph % (Auto) 27.0 % (18.3-44.2) [place] % (Auto) 6.6 % (2.6-8.5) Eos % (Auto) 0.1 % (0-4.4) Baso % (Auto) 0.1 L % (0.2-1.2) Lymph # (Auto) 2.08 K/mm3 (0.9-3.2) [place] # (Auto) 0.5 K/mm3 (0.1-0.6) Eos # (Auto) 0.0 K/mm3 (0-0.3) Baso # (Auto) 0.0 K/mm3 (0.0-0.1) Abs Immat Gran (auto) 0.03 K/mm3 (0.00-0.031) Absolute Neuts (auto) 5.1 K/mm3 (1.3-6.7) Absolute Nucleated RBC 0.0 K/mm3 (0.0-0.012) Nucleated RBC % 0.0 % (0.0-0.2) POC Capillary Glucose 112 H mg/dl (65-105) RPR Pending : gestational age HCG: positive Patient hx anesthesia problems: none Family hx anesthesia problems: none Results Review: All pre-operative results and documents have been reviewed as part of the pre-operative evaluation. [facility] Past Medical History Medical History Anxiety and depression Asthma GERD with apnea History of anxiety Hypothyroidism Obesity Family History Family History Grandparent Family history of heart disease in male family member before age 55 Father Colon cancer Other Family history of malignant neoplasm Patient's father is Social History Social History Smoking status: Never smoker Substance use: never Do You Feel Safe in your Home?: No Lack of Transportation: No Lack of Food: Never True Current Housing: I Have Housing Concerned About Future Housing: No Difficulty Paying Gas/Electric Bills: No Difficulty Paying for Meds: No Currently Unemployed: No Education: Bachelor's Degree Difficulty w/ Childcare or Family Care: No Spiritual care concerns: No Exam Day of Procedure 08/12/23 16:59 Patient weight: obese
[2023-08-12] MEDS: DINOPROSTONE 10 MG VAG INSERT VAGINAL (19:07)
[2023-08-12 21:28] LABS: Glucose Point of Care 86 mg/dl (65-105)
[2023-08-13] VITALS (154 sets, daily range): BP systolic 79–134; BP diastolic 39–94; PULSE 25–143; TEMP 36.1–36.6; O2SAT 78–100
[2023-08-13 01:24] LABS: Glucose Point of Care 96 mg/dl (65-105)
[2023-08-13 05:15] LABS: Glucose Point of Care 85 mg/dl (65-105)
[2023-08-13] MEDS: LACTATED RINGERS 1,000 ML 125 ML IV CONT ×2 (07:24→08:11)
[2023-08-13] MEDS: OXYTOCIN 30 UNITS/NS 500 ML 30 UNITS/500 ML BAG IV CONT (08:37)
[2023-08-13 09:08] LABS: Glucose Point of Care 94 mg/dl (65-105)
[2023-08-13] MEDS: SERTRALINE HCL 50 MG TABLET 100 MG PO (09:46)
[2023-08-13 11:30] LABS: Rapid Plasma Reagin Non-Reactive (NonReactive)
--- NOTE | 2023-08-13 12:14 | WPDOBADMIT ---
Obstetrics - Admit Note Admission Note: Late entry from 0845 on 08/13/23 record reviewed. Additions to the history and/or subsequent changes in the physical findings follow. 28 y/o at 38 4/7 weeks here for induction of labor. She has gestational diabetes and has had poor glycemic control over the last 2 weeks. After a long discussion of risks vs benefits, we decided to go ahead with induction of labor. Cervidil overnight, has been withdrawn. Now comfortable with epidural. GBS neg. AVSS NST reactive TOCO: contractions irregularly ABD soft, nontender, gravid, vertex EXT nontender Cervix 2-3/50/-2. Vertex. AROM with clear fluid. IUPC placed. Accuchecks OK A: IUP at term with gestational diabetes, worsening control, here for induction of labor. P: S/p Cervidil, now with oxytocin. Anticipate . Monitor accuchecks.
--- NOTE | 2023-08-13 12:19 | PM.OBPNLAB ---
Pain Control Date/time seen: 08/13/23 12:19 Comfortable with epidural. AVSS NST reactive TOCO: contractions every 2-3 min Cervix 3-4/80/-2. Accuchecks normal. Continue oxytocin. Anticipate .
[2023-08-13 13:31] LABS: Glucose Point of Care 57 mg/dl (65-105)
[2023-08-13 15:01] LABS: Glucose Point of Care 73 mg/dl (65-105)
--- NOTE | 2023-08-13 16:10 | P.PCNOB_ITS ---
OB - Vaginal Delivery Note Procedure Delivery date: 08/13/23 Events: Gestational Diabetes Induction method: Per Cervidil Protocol Delivery augmentation: Rupture of Membranes and Pitocin Delivery monitor: External FHT, External Uterine and Internal FHT Route of delivery: Episiotomy description: None Laceration Description: None Specimen: Yes (cord blood, placenta) Quantitative Blood Loss (ml): 220 Anesthesia type: Epidural Disposition: PACU Complications: None Narrative: 28 y/o at 38 4/7 weeks gestation who presented to the hospital for induction of labor. Cervidil was placed overnight, then withdrawn the next morning. Oxytocin was administered intravenously. Amniotomy was performed with return of clear fluid. She received an epidural for pain control. Accuchecks w ere normal throughout labor. Her labor progressed and her cervix dilated completely. She pushed with good effort and delivered the 's head to the perineum. A loose nuchal cord was splinted and the body delivered. The cord was reduced, and the body delivered. The nose and mouth were bulb suctioned. After a delay, the cord was clamped and cut. The was handed off the field. Cord blood was collected. The placenta delivered spontaneously and was grossly normal in appearance. The usual 3 vessel cord was noted. There were no lacerations. The patient was taken to recovery room in stable condition. The went to the nursery in stable condition. I was present and scrubbed for the entire delivery. [place] Baby Date of : 08/13/23 Time of : 16:00 Weeks of gestation at delivery: 38 Infant gender: Male presentation: vertex position: Left Occiput Anterior Placenta delivery description: Spontaneous and Normal Configuration Cord Vessel Description: 3 Vessels, Nuchal Cord and Delayed Cord Clamping score one minute: 8 score five minutes: 9
--- NOTE | 2023-08-13 16:10 | PM.OBDSVD ---
DS: Admitting Diagnosis Discharge Date 08/15/23 Admitting Diagnosis IUP at 38 4/7 weeks Gestational diabetes with worsening glycemic control DS: Discharge Diagnosis Discharge Diagnosis (1) (normal spontaneous vaginal delivery): Code(s): O80 - Encounter for full-term uncomplicated delivery Status: Acute (2) Gestational diabetes mellitus: Code(s): O24.419 - Gestational diabetes mellitus in , unspecified control Status: Acute OB - DS: Summary OB Procedures : None and NST OB Procedures Intrapartum: Spontaneous Vag Delivery OB Procedures: : None Time Spent with Patient Time attestation: Total time spent providing and/or coordinating discharge services: DS: Data Data Completed and Pending Labs on day of discharge: Labs from last 24 hours 08/13/23 08/13/23 08/13/23 14:46 13:13 09:02 WBC RBC Hgb Hct MCV MCH MCHC RDW Plt Count MPV Immature Gran % (Auto) Neut % (Auto) Lymph % (Auto) [place] % (Auto) Eos % (Auto) Baso % (Auto) Lymph # (Auto) [place] # (Auto) Eos # (Auto) Baso # (Auto) Abs Immat Gran (auto) Absolute Neuts (auto) Absolute Nucleated RBC Nucleated RBC % POC Capillary Glucose 73 57 L* 94 RPR Blood Type Antibody Screen 08/13/23 08/13/23 08/12/23 05:08 01:16 21:24 WBC RBC Hgb Hct MCV MCH MCHC RDW Plt Count MPV Immature Gran % (Auto) Neut % (Auto) Lymph % (Auto) [place] % (Auto) Eos % (Auto) Baso % (Auto) Lymph # (Auto) [place] # (Auto) Eos # (Auto) Baso # (Auto) Abs Immat Gran (auto) Absolute Neuts (auto) Absolute Nucleated RBC Nucleated RBC % POC Capillary Glucose 85 96 86 RPR Blood Type Antibody Screen 08/12/23 08/12/23 16:50 16:23 WBC 7.7 RBC 4.19 L Hgb 10.7 L Hct 33.6 L MCV 80.2 MCH 25.5 L MCHC 31.8 L RDW 15.0 H Plt Count 219 MPV 12.8 H Immature Gran % (Auto) 0.4 Neut % (Auto) 65.8 Lymph % (Auto) 27.0 [place] % (Auto) 6.6 Eos % (Auto) 0.1 Baso % (Auto) 0.1 L Lymph # (Auto) 2.08 [place] # (Auto) 0.5 Eos # (Auto) 0.0 Baso # (Auto) 0.0 Abs Immat Gran (auto) 0.03 Absolute Neuts (auto) 5.1 Absolute Nucleated RBC 0.0 Nucleated RBC % 0.0 POC Capillary Glucose 112 H RPR Non-reactive Blood Type A Positive Antibody Screen Negative Discharge Plan Discharge Attending physician on discharge: Enio Kamara Discharging Clinician: Enio Kamara Patient Disposition: Home, Self-Care Activity: pelvic rest Diet: regular Discharge Instructions: Call or return if temperature above 100.4? F, increased abdominal pain, increased vaginal bleeding or any new problems. Stand Alone Forms: General Discharge Information Follow-up/Referrals: Enio Kamara MD [Physician] - 6 Weeks Discharge Medications: New ibuprofen 600 mg tablet 600 mg PO Q6H PRN (Reason: cramps) Qty: 30 0RF ferrous sulfate 325 mg (65 mg iron) tablet 325 mg PO DAILY Qty: 30 0RF Continued sertraline 50 mg Tablet 100 mg PO DAILY prenat.vits,emmanuel,mak-gtcp-vxaox Tablet 1 tablet PO DAILY Date of admission: 08/12/23 15:58 Primary Care Provider: Brittni,Yanna Harper Admitting Provider: Enio Kamara Attending physician on admission: Enio Kamara Condition: Stable
[2023-08-13] MEDS: OXYTOCIN 30 UNITS/NS 500 ML 30 UNITS/500 ML BAG 125 UNITS IV CONT (16:36)
[2023-08-14 05:31] LABS: Hematocrit 32.3 % (37.0-47.0); Hemoglobin 9.9 g/dL (12.0-15.0)
[2023-08-14] MEDS: POLYSACCHARIDE IRON COMPLEX 150 MG CAPSULE PO ×2 (07:39→17:56)
[2023-08-14] MEDS: DOCUSATE SODIUM 100 MG CAPSULE PO ×2 (07:39→17:56)
[2023-08-14] MEDS: MULTIVIT/MIN/PREN/FOL AC/IRON TABLET 1 TAB PO (07:39)
[2023-08-14] MEDS: IBUPROFEN 600 MG TABLET PO ×2 (07:40→17:55)
[2023-08-14] MEDS: SERTRALINE HCL 50 MG TABLET 100 MG PO (07:40)
--- NOTE | 2023-08-14 08:07 | WPDANLDPN2 ---
Anes-Prog Note L&D Date/Time: 08/14/23 08:07 Comfortable throughout: labor and delivery Neuraxial method: epidural Epidural/Spinal procedure site: clean & non-tender Neuro status: Neuro function grossly intact. Cardiovascular status: normal Respiratory status: normal Airway patency: baseline Mental status: baseline Post-Op hydration status: normal Vital Signs: Last Vital Signs Temp 36.5 C 08/13/23 13:10 Pulse 106 H 08/13/23 18:31 BP 110/67 08/13/23 18:31 Pulse Ox 100 08/13/23 16:00 O2 Del Method Room Air 08/12/23 16:29 Pain score (VAS): 1/10 I/O: Intake & Output 08/13/23 08/14/23 08/14/23 23:59 07:59 15:59 Output Total 220 Balance -220 Post-procedural complaints: none Patient feedback: Patient satisfied with anesthetic care.
[2023-08-14 08:15] VITALS: BP 107/66; PULSE 87; RESP 16; TEMP 36.4; O2SAT 100
[2023-08-14 12:27] VITALS: BP 123/67; PULSE 88; RESP 18; TEMP 36.9; O2SAT 100
--- NOTE | 2023-08-14 13:07 | PC.NURSE ---
[id number] Introductions were made, then consulted with patient to assess needs related to . Mother led the conversation with her?plans to feed?her infant, the?experience so far, and parents shared their experience with their first born as a NICU baby with rigid scheduling. Encouraged understanding of the benefits of skin to skin (demonstrating unwrapping infant and placing upright on her chest), bonding with infant, stimulating with massage touch, changing positions to encourage wakefulness, how to watch for early feeding cues, responsive feeding, feeding on demand (aiming for 8-12 times in 24 hours, about every 2-3 hours), milk production, building/maintaining a milk supply, signs of adequate intake/output with exclusively and how to record on the feeding sheet. Resources used for education were facilitated with the visual educational handouts. Inpatient/outpatient resources provided with feeding sheet, name written on the communication board, and the mom/baby guide. Parents voiced understanding of information and will call if there is a request for assistance. [id number] is [id number] with mother and demonstrating feeding cues. Reviewed positioning and ear, shoulder, hip alignment, supporting the breast to facilitate a deep latch, asymmetrical latch (off-center), leading with the chin with a big, open, wide gape and body close to mother. latched optimally to the right, left breast in football position. Education given to the mother of how to visualize the suckling (with good rocking jaw motion), swallows (dropping of the lower jaw) and how to listen for drinking at the breast (the ka sound) which demonstrates occasionally. Discussed understanding of the fears parents have concerning vs formula feeding on knowing if infant is getting enough. Risks and benefits were discussed along with how to protect the milk supply and meeting the goals of the parents with understanding of their NICU experience. was able to maintain latch without pain to mother protecting the nipple with optimal positioning and latching. Reviewed comfort measures of healing with a warm, wet washcloth to rinse breast, then leave open to air-dry, good handwashing when or touching the breast/nipples to prevent infection. Mother voiced understanding of skin to skin, stimulating with massage touch, responsive feedings, encourage if it has been 2 -2.5 hours since the start of the last , to call if infant does not latch, or if there is discomfort with . Resources used for education were facilitated with the visual educational handouts/ tool/mom and baby guide. Inpatient/outpatient resources provided with feeding sheet, name written on the communication board, and the mom/baby guide. Parents voiced understanding of information, demonstrated learning and will call if there is a request for assistance. Reported to the Primary RN.
--- NOTE | 2023-08-14 17:25 | PM.OBPNVD ---
OB - PN: Subj Subjective Date/time seen: 08/14/23 17:25 Narrative: Pain OK. Would like circumcision for son. OB - PN: Obj Data Labs 08/14/23 04:56 Labs: Laboratory Results - last 24 hr 08/14/23 04:56 Hgb 9.9 L Hct 32.3 L OB - PN A/P Plan Comments: A: PPD#1, doing well. P: Reviewed circ. Routine care. Exam Psych: Other: AVSS ABD soft, nontender, fundus firm EXT nontender
[2023-08-14 20:44] VITALS: BP 118/73; PULSE 83; RESP 18; TEMP 36.6; O2SAT 98
[2023-08-15 07:57] VITALS: BP 122/75; PULSE 83; RESP 18; TEMP 36.3; O2SAT 98
[2023-08-15] MEDS: MULTIVIT/MIN/PREN/FOL AC/IRON TABLET 1 TAB PO (08:52)
[2023-08-15] MEDS: POLYSACCHARIDE IRON COMPLEX 150 MG CAPSULE PO (08:52)
[2023-08-15] MEDS: DOCUSATE SODIUM 100 MG CAPSULE PO (08:53)
[2023-08-15] MEDS: SERTRALINE HCL 50 MG TABLET 100 MG PO (08:53)
[2023-08-15] MEDS: IBUPROFEN 600 MG TABLET PO (08:53)
--- NOTE | 2023-08-15 08:56 | PM.OBPNVD ---
OB - PN: Subj Subjective Date/time seen: 08/15/23 08:56 Narrative: Pain OK. Would like to go home. OB - PN: Obj Data Labs 08/14/23 04:56 OB - PN A/P Plan Comments: A: PPD#2, doing well. P: Home to f/u 6 weeks. Exam Psych: Other: AVSS ABD soft, nontender, fundus firm EXT nontender
--- NOTE | 2023-08-15 10:54 | PC.NURSE ---
0930 - Purposefully rounded to assess for needs. Mother is anxious about doing things different than her first experience with the NICU. Reminded mother of ways to protect her milk supply if she would like to bottle feed breast milk to her infant. Resources provided in support of mothers choice to feeding her infant using the Feeding your Bath pamphlet.
--- NOTE | 2023-08-15 12:10 | PC.NURSE ---
Patient viewed the discharge video Mother & Baby Care, The First Two Weeks . Patient was given the opportunity and encouraged to ask questions. Patient verbalized understanding of information shared and has been given the mother/baby guide for home reference.
[2023-08-16 10:20] VITALS: BP 119/69; PULSE 83; RESP 18; TEMP 36.7; O2SAT 99
== END 2023-08-15 13:00 | disposition home or self-care (01) | DRG 807 ==
LOC: ANHLDR 08-13 09:02 → ANHOB2 08-13 18:52
PROVIDERS: Admitting Provider Obstetrics & Gynecology; PCP Family Medicine; Visit Provider Obstetrics & Gynecology
DX: O24.429 Gestational diabetes mellitus in childbirth, unspecified control (principal); Z37.0 Single live birth; Z3A.38 38 weeks gestation of pregnancy; O69.81X0 Labor and delivery complicated by cord around neck, without compression, not applicable or unspecified
CPT/HCPCS: 36415; 82948; 85014; 85018; 85025; 86592; 86850; 86900; 86901; 88307; A9270; J2590; J2795; J7120

== ENCOUNTER 2024-09-17 17:43 | Emergency (ER) | payer BC, SELFPAY ==
--- NOTE | ~2024-09-17 | CT_ITS ---
History: Fall PROCEDURE: CT head without contrast. COMPARISON: 06/17/2012 TECHNIQUE: Axial imaging of the head performed from the skull base to the vertex without IV contrast. Sagittal a nd coronal reformations obtained. DLP: 605 mGy-cm FINDINGS: The ventricles are normal in size, shape and position. There is no mass, mass effect or midline shift. There is no abnormal extra-axial fluid collection or intracranial hemorrhage. Visualized paranasal sinuses are clear. The mastoid air cells are well aerated. No acute displaced fractures within the overlying cranium. Impression: No acute intracranial hemorrhage or suspicious mass effect. Reviewed, dictated and finalized at location A. Impression: No acute intracranial hemorrhage or suspicious mass effect.
--- OUTSIDE RECORDS SUMMARY | 2024-09-17 17:45 | XMS_ITS | Patient Health Record ---
Author Organization [facility] [employer] Address [address] [place] [address] Care Team Providers Care Press Setter Name Role Phone Sherrie Prado Unavailable [phone] Migration, Provider Unavailable Unavailable Allergies No Known Allergies Reason For Referral No Information Medications Medication SIG (Take, Route, Frequency, Duration) Notes Start Date End Date Status OneTouch Delica Plus [id number] 05/23/2023 Active metFORMIN HCl ER 500 MG Oral 05/23/2023 Active ONETOUCH VERIO FLEX MISCELLANEOUS *Reorder from Preact for eRx and Interaction Alerts* 05/23/2023 Active OneTouch Verio In Vitro 05/23/2023 Acti ve Ibuprofen 600 MG Oral 05/23/2023 Ac tive buPROPion HCl ER (XL) 150 MG 1 tablet in the morning Orally Once a day for 30 days 08/06/2024 Active Immunizations Vaccine Route Administration Date Status Comme nts Arnoldo Covid-19 Vaccine Unknown 08/23/2020 Administere d MMR Unknown 03/16/2018 Administered [employer] Covid-19 Vac cine 2nd dose Unknown 02/14/2021 Administered Tdap Unknown 10/15/2019 Administered Social History Sex Assigned At : Social History Observation Description Sex Assigned At Female Problems Problem Type SNOMED Code ICD Code Onset Dates Problem Status W/U Status Risk Notes Problem Moderate recurrent major depression (57418411) Major depressive disorder, recurrent, moderate (F33.1) 3 Active confirmed Problem Generalized anxiety disorder (92114335) Generalized anxiety disorder (F41.1) 3 Active confirmed Problem [id number] Mixed obsessional thoughts and acts (F42.2) Active confirmed Problem [id number] MDD (major depressive disorder), recurrent episode, mild (F33.0) Active confirmed Vital Signs Heart Rate 96 /min 02/19/2024 Blood pressure diastolic 61 mm Hg 02/19/2024 Height-cm 160.02 cm 02/19/2024 Weight-kg 88.45 kg 02/19/2024 Height 63.00 in 02/19/2024 Blood pressure systolic 99 mm Hg 02/19/2024 Weight 195 lbs 02/19/2024 BMI 34.54 kg/m2 02/19/2024 Encounters [facility] [address] [facility] [address] [place] [address] 01/13/2024 Sherrie Theredwina Generalized anxiety disorder F41.1 and MDD (major depressive disorder), recurrent episode, mild F33.0 [facility] [address] [facility] [address] [place] [address] 02/19/2024 Sherrie Theredwina Generalized anxiety disorder F41.1 ; MDD (major depressive disorder), recurrent episode, mild F33.0 and Mixed obsessional thoughts and acts F42.2 [facility] [address] [address] 03/19/2024 Sherrie Theredwina [facility] [address] [address] 08/06/2024 Sherrie Theredwina Generalized anxiety disorder F41.1 ; MDD (major depressive disorder), recurrent episode, mild F33.0 and Mixed obsessional thoughts and acts F42.2 [facility] [address] [address] 11/01/2023 Provider Migration [facility] [address] [facility] [address] [place] [address] 11/02/2023 Provider Migration [facility] [address] [facility] [address] [place] [address] 12/17/2023 Sherrie Theredwina [facility] [address] [place] [address] 07/29/2024 Sherrie Theredwina MDD (major depressive disorder), recurrent episode, mild F33.0 [facility] [address] [facility] [address] [place] [address] 08/19/2024 Sherrie Thery [facility], [facility] [address] [place] [address] 09/07/2024 Sherrie Thery MDD (major depressive disorder), recurrent episode, mild F33.0 [facility] [address] [place] [address] 12/18/2023 Sherrie Thery Major depressive disorder, recurrent, moderate F33.1 [facility] [address] [place] [address] 01/06/2024 Sherrie Thery [facility] [address] [place] [address] 08/31/2024 Sherrie Thery [facility], [facility] [address] [place] [address] 09/07/2024 Sherrie Thery Assessments Encounter Date Diagnosis (ICD Code) Assessment Notes Treatment Notes Treatment Clinical Notes Section Notes 12/18/2023 Major depressive disorder, recurrent, moderate (ICD-10 - F33.1) 01/13/2024 Generalized anxiety disorder (ICD-10 - F41.1) Learning About Generalized Anxiety Disorder material was published, Generalized Anxiety Disorder: Care Instructions material was published, Learning About Anxiety Disorders material was published 1. recurrent major depression - Patient is presently on Wellbutrin SR 100 mg daily discuss increase Wellbutrin SR 100 mg twice a day for depresison 2. Generalized anxiety disorder - monitor 01/13/2024 MDD (major depressive disorder), recurrent episode, mild (ICD-10 - F33.0) Preventing Depression From Coming Back: Care Instructions material was published, Learning About Depression material was published, Learning About Depression Screening material was published 1. recurrent major depression - Patient is presently on Wellbutrin SR 100 mg daily discuss increase Wellbutrin SR 100 mg twice a day for depresison 2. Generalized anxiety disorder - monitor 02/19/2024 Generalized anxiety disorder (ICD-10 - F41.1) Learning About Generalized Anxiety Disorder material was published, Generalized Anxiety Disorder: Care Instructions material was published, Learning About Anxiety Disorders material was published, Generalized Anxiety Disorder: Care Instructions material was published, Learning About Generalized Anxiety Disorder material was published, Learning About Anxiety Disorders material was published CancelRx Response got Denied on 2024-08-06 14:44:13 for 'FLUoxetine HCl 20 MG Capsule'Pharmac y Notes: Unable to Cancel Rx. Please contact Pharmacy 1. recurrent major depression - Wellbutrin SR 100 mg twice a day for depresison 2. Generalized anxiety disorder - Add Prozac 20 mg daily 3. OCD- Prozac 20 mg daily refer to therapy educated on all medications, benefits, side effects and risk, and educated on depression, anxiety, and ADHD, mood d/o and educated on compliance of medications, metabolic and movement d/o education appointment is, continue therapy discussion with patient about course of treatment and patient instructions. education on serotonin syndrome SSRI/SNRI side effects discussed including but not limited to, gastric upset, nausea, vomiting, diarrhea and/or constipation, weight changes, sexual side effects including loss of libido, increased suicidal thoughts/behavio rs in children and young adults, and serotonin syndrome. Medication Management and Follow-Up - Plan: - Schedule follow-up appointments every 1-3 months to monitor the patient's response to the medication regimen. - Reinforce the importance of avoiding recreational drug use due to potential neurotoxicity and interactions with prescribed medications. 07/29/2024 MDD (major depressive disorder), recurrent episode, mild (ICD-10 - F33.0) 08/06/2024 Generalized anxiety disorder (ICD-10 - F41.1) Learning About Generalized Anxiety Disorder material was published, Generalized Anxiety Disorder: Care Instructions material was published, Learning About Anxiety Disorders material was published, Generalized Anxiety Disorder: Care Instructions material was published, Learning About Generalized Anxiety Disorder material was published, Learning About Anxiety Disorders material was published 1. major depression - Patient reported complaince issues with twice a day rx and been taking BID last 3 weeks improved mood switch Wellbutrin SR 100 mg twice a day for depresison Add Wellbutrin XL 150 mg daily in am - will titrate as needed 2. Generalized anxiety disorder - Prozac 20 mg daily- patient reported has not taken rx- patient prefer one rx 3. OCD- refer to therapy educated on all medications, benefits, side effects and risk, and educated on depression, anxiety, and ADHD, mood d/o and educated on compliance of medications, metabolic and movement d/o education appointment is, continue therapy discussion with patient about course of treatment and patient instructions. education on serotonin syndrome SSRI/SNRI side effects discussed including but not limited to, gastric upset, nausea, vomiting, diarrhea and/or constipation, weight changes, sexual side effects including loss of libido, increased suicidal thoughts/behavio rs in children and young adults, and serotonin syndrome. Medication Management and Follow-Up - Plan: - Schedule follow-up appointments every 1-3 months to monitor the patient's response to the medication regimen. - Reinforce the importance of avoiding recreational drug use due to potential neurotoxicity and interactions with prescribed medications. 09/07/2024 MDD (major depressive disorder), recurrent episode, mild (ICD-10 - F33.0) 08/06/2024 MDD (major depressive disorder), recurrent episode, mild (ICD-10 - F33.0) Preventing Depression From Coming Back: Care Instructions material was published, Learning About Depression material was published, Learning About Depression Screening material was published, Learning About Depression material was published, Learning About Depression Screening material was published, Learning About How to Get Help During a Mental Health Crisis material was published 1. major depression - Patient reported complaince issues with twice a day rx and been taking BID last 3 weeks improved mood switch Wellbutrin SR 100 mg twice a day for depresison Add Wellbutrin XL 150 mg daily in am - will titrate as needed 2. Generalized anxiety disorder - Prozac 20 mg daily- patient reported has not taken rx- patient prefer one rx 3. OCD- refer to therapy educated on all medications, benefits, side effects and risk, and educated on depression, anxiety, and ADHD, mood d/o and educated on compliance of medications, metabolic and movement d/o education appointment is, continue therapy discussion with patient about course of treatment and patient instructions. education on serotonin syndrome SSRI/SNRI side effects discussed including but not limited to, gastric upset, nausea, vomiting, diarrhea and/or constipation, weight changes, sexual side effects including loss of libido, increased suicidal thoughts/behavio rs in children and young adults, and serotonin syndrome. Medication Management and Follow-Up - Plan: - Schedule follow-up appointments every 1-3 months to monitor the patient's response to the medication regimen. - Reinforce the importance of avoiding recreational drug use due to potential neurotoxicity and interactions with prescribed medications. 02/19/2024 Mixed obsessional thoughts and acts (ICD-10 - F42.2) Obsessive-Compu lsive Disorder: Care Instructions material was published 1. recurrent major depression - Wellbutrin SR 100 mg twice a day for depresison 2. Generalized anxiety disorder - Add Prozac 20 mg daily 3. OCD- Prozac 20 mg daily refer to therapy educated on all medications, benefits, side effects and risk, and educated on depression, anxiety, and ADHD, mood d/o and educated on compliance of medications, metabolic and movement d/o education appointment is, continue therapy discussion with patient about course of treatment and patient instructions. education on serotonin syndrome SSRI/SNRI side effects discussed including but not limited to, gastric upset, nausea, vomiting, diarrhea and/or constipation, weight changes, sexual side effects including loss of libido, increased suicidal thoughts/behavio rs in children and young adults, and serotonin syndrome. Medication Management and Follow-Up - Plan: - Schedule follow-up appointments every 1-3 months to monitor the patient's response to the medication regimen. - Reinforce the importance of avoiding recreational drug use due to potential neurotoxicity and interactions with prescribed medications. 02/19/2024 MDD (major depressive disorder), recurrent episode, mild (ICD-10 - F33.0) Preventing Depression From Coming Back: Care Instructions material was published, Learning About Depression material was published, Learning About Depression Screening material was published, Learning About Depression material was published, Learning About Depression Screening material was published, Learning About How to Get Help During a Mental Health Crisis material was published 1. recurrent major depression - Wellbutrin SR 100 mg twice a day for depresison 2. Generalized anxiety disorder - Add Prozac 20 mg daily 3. OCD- Prozac 20 mg daily refer to therapy educated on all medications, benefits, side effects and risk, and educated on depression, anxiety, and ADHD, mood d/o and educated on compliance of medications, metabolic and movement d/o education appointment is, continue therapy discussion with patient about course of treatment and patient instructions. education on serotonin syndrome SSRI/SNRI side effects discussed including but not limited to, gastric upset, nausea, vomiting, diarrhea and/or constipation, weight changes, sexual side effects including loss of libido, increased suicidal thoughts/behavio rs in children and young adults, and serotonin syndrome. Medication Management and Follow-Up - Plan: - Schedule follow-up appointments every 1-3 months to monitor the patient's response to the medication regimen. - Reinforce the importance of avoiding recreational drug use due to potential neurotoxicity and interactions with prescribed medications. 08/06/2024 Mixed obsessional thoughts and acts (ICD-10 - F42.2) Obsessive-Compu lsive Disorder: Care Instructions material was published 1. major depression - Patient reported complaince issues with twice a day rx and been taking BID last 3 weeks improved mood switch Wellbutrin SR 100 mg twice a day for depresison Add Wellbutrin XL 150 mg daily in am - will titrate as needed 2. Generalized anxiety disorder - Prozac 20 mg daily- patient reported has not taken rx- patient prefer one rx 3. OCD- refer to therapy educated on all medications, benefits, side effects and risk, and educated on depression, anxiety, and ADHD, mood d/o and educated on compliance of medications, metabolic and movement d/o education appointment is, continue therapy discussion with patient about course of treatment and patient instructions. education on serotonin syndrome SSRI/SNRI side effects discussed including but not limited to, gastric upset, nausea, vomiting, diarrhea and/or constipation, weight changes, sexual side effects including loss of libido, increased suicidal thoughts/behavio rs in children and young adults, and serotonin syndrome. Medication Management and Follow-Up - Plan: - Schedule follow-up appointments every 1-3 months to monitor the patient's response to the medication regimen. - Reinforce the importance of avoiding recreational drug use due to potential neurotoxicity and interactions with prescribed medications. 01/13/2024 Other Bupropion Extended Release Oral Tablet (BUPROPION SUSTAINED-RELEA SE (ANTIDEPRESSANT ) - ORAL) material was published 1. recurrent major depression - Patient is presently on Wellbutrin SR 100 mg daily discuss increase Wellbutrin SR 100 mg twice a day for depresison 2. Generalized anxiety disorder - monitor 02/19/2024 Other Bupropion Extended Release Oral Tablet (BUPROPION SUSTAINED-RELEA SE (ANTIDEPRESSANT ) - ORAL) material was published, Fluoxetine Oral Capsule (FLUOXETINE - ORAL) material was published 1. recurrent major depression - Wellbutrin SR 100 mg twice a day for depresison 2. Generalized anxiety disorder - Add Prozac 20 mg daily 3. OCD- Prozac 20 mg daily refer to therapy educated on all medications, benefits, side effects and risk, and educated on depression, anxiety, and ADHD, mood d/o and educated on compliance of medications, metabolic and movement d/o education appointment is, continue therapy discussion with patient about course of treatment and patient instructions. education on serotonin syndrome SSRI/SNRI side effects discussed including but not limited to, gastric upset, nausea, vomiting, diarrhea and/or constipation, weight changes, sexual side effects including loss of libido, increased suicidal thoughts/behavio rs in children and young adults, and serotonin syndrome. Medication Management and Follow-Up - Plan: - Schedule follow-up appointments every 1-3 months to monitor the patient's response to the medication regimen. - Reinforce the importance of avoiding recreational drug use due to potential neurotoxicity and interactions with prescribed medications. Plan Of Treatment No Information Insurance Providers Payer Name Payer Address Payer Phone Subscriber Number Group Number Insured Name Patient Relationship to Insured Coverage Start Date Coverage End Date [employer] [place] [address] [id number] ILAN SHUKLA Spouse - patient is the spouse of the insured Medical (General) History Medical History History ICD Code Problems: Generalized anxiety disorder Moderate recurrent major depression ,
--- OUTSIDE RECORDS SUMMARY | 2024-09-17 17:45 | XMS_ITS ---
Author Organization [facility] [employer] [facility] Address [facility] [address] [address] Care Team Providers Care Finance Teacher Name Role Phone Sherrie Prado Unavailable [phone] REASON FOR VISIT R/S due to an emergency Social History Sex Assigned At : Social History Observation Description Sex Assigned At Female Encounters Encounter Location Date Provider Diagnosis [place] [address] [address] [facility] [address] [address] 08/31/2024 Sherrie Prado Plan Of Treatment No Information Progress Notes * SACHIN SHUKLADOB:1995 ( 29 yo F)Acc No.[id number]:08/31/2024 Patient: SACHIN COTTER Provider: JEOVANNY HENRIQUEZ :1995 A ge:29 Y S ex:Female Date:08/31/2024 Address:[address] [place], [place] [id number] Subjective: * Chief Complaints: * 1 . R/S due to an emergency. * Medical History: Objective: * Vitals: Assessment: Plan: * Treatment: * Billing Information: * Visit Code: * Procedure Codes: * Electronic signature of JEOVANNY Boo on 09/17/2024 at 05:44 PM CDT Sign off status: Pending * Provider: JEOVANNY HENRIQUEZ Date: 0 08/31/2024 Generated for Jillian garcia/Maria Victoria/eTransmitting on: 0 09/17/2024 05:44 PM CDT
--- OUTSIDE RECORDS SUMMARY | 2024-09-17 17:46 | XMS_ITS ---
Author Organization [facility] [employer] Address [address] [facility] [address] [place] [address] Care Team Providers Care Graduate Fellow Name Role Phone Unavailable Primary Care Physician Unavailab le Medications Name Start Date Expiration Date SIG Comments Nexplanon 68 mg subdermal implant 09/29/2023 09/30/2023 implant 1 by subderm al route once Payers Insurance Name Company Name Plan Name Plan Number Policy Number Policy Group Number Start Date [place] [id number] N/A History of Encounters Visit Date Visit Type Provider 09/29/2023 My-IUD Tele-Med Consult Dr. Gavin Wilcox MD
--- OUTSIDE RECORDS SUMMARY | 2024-09-17 17:46 | XMS_ITS | Data Portability ---
Author Organization [facility], Main Office Address [address] [place] [address] Assessment No assessment recorded. Plan of Treatment Reminders Order Date Submit Date Provider Last Modified By Organization Details Last Modified Time Details Appointments None recorded. Lab dexamethaso ne, serum 2022 023 KARINA Verduzco, 2022 Alok Cedillo, [address], [place], [address], 3 13:14:49 cortisol, am, serum 2022 023 KARINA Verduzco, 2022 Alok Cedilol, [address], [place], [address], 3 13:14:49 TSH + free T4, serum 2022 023 KARINA Verduzco, 2022 Alok Cedillo, [address], [place], [address], 3 13:14:48 T3, free, serum or plasma 2022 023 KARINA Verduzco, 2022 Alok Cedillo, [address], [place], [address], 3 13:14:49 thyroid peroxidase (tpo) Ab, serum 2022 023 KARINA Verduzco, 2022 Alok Cdeillo, [address], [place], [address], 3 13:14:49 CMP, serum or plasma 2022 023 KARINA Verduzco, 2022 Alok Cedillo, [address], [place], [address], 3 13:14:49 food allergen panel, serum 2022 023 [facility], 2022 Alok Cedillo, [address], [place], [address], 3 13:14:49 celiac disease comprehensi ve panel, serum 2022 023 [facility], 2022 Alok Cedillo, [address], [place], [address], 3 13:14:48 pancreatic elastase, quant, stool 2022 023 [facility], 2022 Alok Cedillo, [address], [place], [address], 3 13:14:48 fat panel, stool 2022 023 [facility], 2022 Alok Cedillo, [address], [place], [address], 3 13:14:49 Referral None recorded. Procedures None recorded. Surgeries None recorded. Imaging US, thyroid 2022 023 [email or web address] [facility], 2022 Kirstie Cedillo, [address], [place], [address], 13:55:26 Medication Orders dexamethaso ne 1 mg tablet 2022 023 [id number], [address], [place], [place], [id number], 13:14:45 Patient TargetsNo targets recorded. Patient InstructionsNo instructions recorded. Reason for Referral None Reported. Results Created Date Observation Date Name Description Value Unit Range Abnormal Flag Note LastModifiedBy Organization Detail LastModifiedTime 05/17/20 21 05/17/2021 US, thyro id No observ ation record ed. [id number] [facility] [address], [place], [address], 08/15/2022 00:01:47 05/17/20 21 05/17/2021 US, thyro id No observ ation record ed. [id number] [facility] [address], [place], [address], 08/15/2022 00:01:47 07/19/19 24 07/19/2023 US, obste tric No observ ation record ed. [email or web address] [place] [address], [place], [address], 09/17/2023 15:53:18 Result Notes None recorded. Problems Name Problem SNOMED Code Status Onset Date Resolution Date Notes Provider Name and Address Organization Details Recorded Time Katelyn thyroiditis 75304864 Active 2022 Amrita Sánchez MD [address], [place], [address], hi5 3 13:12:15 Weight gain 8065432 Active 2022 Amrita Sánchez MD [address], [place], [address], [place] 3 13:12:36 Loose stool 076289172 Active 2022 MD [address], [place], [address], hi5 3 13:13:33 Goiter 3469081 Active 2022 Amrita Sánchez MD [address], [place], [address], [place] 3 13:14:21 Impaired fasting glycemia 124812677 Active 2022 EVENS Crabtree null, hi5 3 16:19:10 Problem Notes None recorded. Procedures Surgical History None recorded. Imaging Results Imaging Date Name Status LastModified by Organiz ation Details LastModified Time 05/17/2021 US, thyroid completed [id number] 30 026 [facility] [address], [place], [address], 08/15/2022 00:01:47 05/17/2021 US, thyroid completed [id number] 30 026 [facility] [address], [place], [address], 08/15/2022 00:01:47 07/19/2023 US, obstetric completed [email or web address] [place] [address], [place], [address], 09/17/2023 15:53:18 Procedure Notes None recorded. Medical Equipment None Reported. Allergies No known drug allergies Medications Name Sig Start Date Stop Date Status Note LastModified by Organization Details LastModified Time buspirone 5 mg tablet 09/09 completed Not Available Not Available Not Available prednisone 10 mg tablet 09/09 completed Not Available Not Available Not Available citalopram 20 mg tablet 09/09 completed Not Available Not Available Not Available dexamethaso ne 1 mg tablet take dexa tablet at 10 pm night before 8 am cortisol 2022 active Not Available Not Available Not Avai lable norethindro ne acetate 1 mg-ethinyl estradiol 20 mcg tablet 09/09 completed Not Available Not Available Not Available albuterol sulfate HFA 90 mcg/actuati on aerosol inhaler active Not Available Not Available Not Available metformin ER 500 mg tablet,exte nded release 24 hr Take 1 tablet every day by oral route at dinner for 90 days. active Not Available Not Available No t Available sertraline 50 mg tablet 09/09 completed Not Available Not Available Not Available metoclopram minal 10 mg tablet 06/05 completed Not Available Not Available Not Available buspirone 15 mg tablet 09/09 completed Not Available Not Available Not Available Blisovi Fe 07/05 (28) 1 mg-20 mcg (21)/75 mg (7) tablet active Not Available Not Available N ot Available Paxlovid 300 mg (150 mg x 2)-100 mg tablets in a dose pack 09/09 completed Not Available Not Available Not Available Vitals Date Recorded Body mass index (BMI) Body height Oxygen saturation Oxygen saturation in Arterial blood by Pulse oximetry Heart rate Body temperature Body weight Systolic blood pressure Diastolic blood pressure Provider Name and Address Organization Details Last Updated DateTime 1 34 kg/m2 160.02 cm 98 % 98 % 85 /min 98 [degF] 20506.7 4 g 100 mm[Hg] 60 mm[Hg] Not Available [facility] 3 23:58:32 Date Recorded Body weight Body temperature Heart rate Systolic blood pressure Diastolic blood pressure Provider Name and Address Organization Details Last Updated DateTime 09/09/2022 32004.8 g 97.6 [degF] 80 /min 132 mm[Hg] 76 mm[Hg] EVENS Nicole [place] [facility] 3 12:51:13 Social History Question Answer Notes LastModified by Organizat ion Details LastModified Time Tobacco Smoking Status Never Smoker Not Available [facility] 08/14/2022 23:57:24 What Is Your Level Of Alcohol Consumption? None [id number] Information not available 08/14/2022 If You Are , What Was Your Level Of Alcohol Consumption Prior To ? None [id number] Information not available 08/14/2022 What Is Your Level Of Caffeine Consumption? Occasional [id number] Information not available 08/14/2022 In The 14 Days Before Symptom Onset, Have You Had Close Contact With A Laboratory-confir med COVID-19 While That Case Was Ill? No [id number] Information not available 08/14/2022 In The 14 Days Before Symptom Onset, Have You Had Close Contact With A Person Who Is Under Investigation For COVID-19 While That Person Was Ill? No [id number] Information not available 08/14/2022 What Type Of Diet Are You Following? REGULAR [id number] Information not available 08/14/2022 What Is The Highest Grade Or Level Of School You Have Completed Or The Highest Degree You Have Received? 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 [id number] Information not available 08/14/2022 Do You Use Any Illicit Or Recreational Drugs? No [id number] Information not available 08/14/2022 Has Tobacco Cessation Counseling Been Provided? No [id number] Information not available 08/14/2022 Have You Recently Traveled Abroad? No [id number] Information not available 08/14/2022 Do You Have Any Dietary Restrictions? No [id number] 0975 Information not available 08/14/2022 Do You Or Have You Ever Used Any Other Forms Of Tobacco Or Nicotine? No [id number].428449 9257 Information not available 08/14/2022 Sex: Female Functional Status None recorded. Mental Status None recorded. Family History Relationship Description Onset Age of this Age Resolved Age Notes LastModified by Organization Details LastModified Time Mother Malignant tumor of thyroid gland [id number] Not available 08/14/2022 23:58:13 Mother Hyperthyroid ism [id number] Not available 08/14/2022 23:58:13 Sister Hyperthyroid ism [id number] Not available 08/14/2022 23:58:14 Father Malignant tumor of colon [id number] Not available 08/14/2022 23:58:14 Medical History Condition Response HYPOTHYROIDISM Y Gynecological HistoryNo gynecological history recorded. Obstetrics History GPAL:G 0 P 0 0 0 0 Past Encounters Encounter ID Performer Location Encounter Start Date Encounter Closed Date Diagnosis/Indication Diagnosis SNOMED-CT Code Diagnosis ICD10 Code Diagnosis Note [id number] [facility] [place] [address] [place] [address] 05/15/2021 00:00:00 05/15/2021 13:47:24 [id number] [facility] [place] [address] [place] [address] 06/05/2021 00:00:00 06/05/2021 11:35:10 [id number] Amrita Sánchez MD [facility] [place] [address] [place] [address] 09/09/2022 12:30:54 09/09/2022 13:55:25 Katelyn thyroiditis 54818355 E06.3 TSH and FT4 normal from June labwork- she has had worsened fatigue, weight gain, dry skin and constipati on/pasty stools since that time- would recommend we send for another full panel to screen for early hypothyroi dism secondary to hashimotos thyroiditi s. Weight gain 0613426 R63. 5 Will send for low dose dexa suppressio n testing to screen for hypercorti solic state. Loose stool 312558379 R1 9.5 Send for elastase, fecal fat and food allergy panel to screen for EPI and malabsorpt ion. Goiter 4502984 E04.9 Will send for repeat thyroid ultrasound as she does have a palpable thyroid and repeat thyroid function panel to assess function. Need to rule out any evidence of new nodules along with change in architectu re or echotextur e of thyroid that would suggest chronic thyroiditi s/autoimmu ne changes. Spent up to 26 minutes preparing to see the patient (eg, review of tests), obtaining and/or reviewing separately obtained history, performing a medically appropriat e examinatio n and evaluation , counseling and educating the patient, ordering medication s, tests, along with documentin g clinical informatio n in the electronic health record, independen tly interpreti ng results and communicat ing results to the patient. RTC in 4-6 months. Patient was provided a handwritte n lab order which contains our fax number. If she chooses to go outside of the [facility] system to obtain labwork she was advised to provide our fax number and my informatio n to the lab she will be obtaining labwork from in order to have her labs properly forwarded over for me to review so there is no loss of follow up due to use of outside network. She was also advised to contact our clinic informing us that she has completed her labwork so we are aware we will need to reach out to the appropriat e laboratory to request her results be forwarded to us so I might have the ability to review and make further medical decision making in her case. She voiced understand ing. Health Concerns Section Related Observation LastModified by Organization Detai ls LastModified Time None Recorded Concern Status LastModified by Organization Details LastModified Time None Recorded Advance Directives Directive None Recorded Payers Encounter Date Sequence Insurance Name Policy Number Policy Peralta Covered Member ID Peralta Member ID Guarantor Name 09/09/2022 [address] [facility]: (PPO) [id number] Orlando Valentine [id number] Valentine Notes Date Note Type Note Provider Name and Address Organization Details Recorded Time 09/09/2022 text/html 27 yo female com es in for follow up in management of hashimotos thyroiditis, weight gain and loose stools. patient had a baby in 2021 Her son is 9 months of age. She is not . She is having some anxiety and struggling to lose weight. She has gained 23 pounds since 2020/. She has worked on caloric restriction- between 8524-6454 calories a day. She does go on walks with he son. She does get steps. Her cycles are back and they are between 28 to 31 days and not as consistent.She has dark stretch art on her belly. She has also noticed more dry skin. She is bruising easier. She is getting itchy rashes. She has hyperpigmentation of her skin. Her mother has hx of thyroid cancer. labs from 07/01/22:TSH of 2.180 uIU/mlFT4 of 1.06 ng/dLglucose 90 mg/dLALT 37 U/LCr [id number] 440 pg/mlTSI/TPO negFT3 of 2.9 pg/ml Amrita Sánchez MD [address] [facility], [facility] [address], [place], [address], [place] [facility] [place] [employer] 09/09/2022 13:33:47 OBGyn Episode No OBEpisode recorded.
[2024-09-17 17:49] VITALS: BP 135/84; PULSE 80; RESP 16; TEMP 36.3; O2SAT 100
--- OUTSIDE RECORDS SUMMARY | 2024-09-17 18:05 | XMS_ITS ---
Author Organization [facility] [employer] Address [address] [facility] [address] [place] [address] Care Team Providers Care Veneer Stacker Name Role Phone Unavailable Primary Care Physician Unavailab le Medications Name Start Date Expiration Date SIG Comments Nexplanon 68 mg subdermal implant 09/29/2023 09/30/2023 implant 1 by subderm al route once Payers Insurance Name Company Name Plan Name Plan Number Policy Number Policy Group Number Start Date [place] [id number] N/A History of Encounters Visit Date Visit Type Provider 09/29/2023 My-IUD Tele-Med Consult Dr. Gavin Wilcox MD
[2024-09-17] MEDS: ONDANSETRON INJ 4 MG/2 ML VIAL IV PUSH (18:32)
[2024-09-17] MEDS: SODIUM CHLORIDE 0.9% IV 1,000 ML 999 ML IV CONT (18:33)
[2024-09-17] MEDS: LORazepam INJ (*CRX) 2 MG/ML VIAL 0.5 MG IV PUSH (18:34)
[2024-09-17] MEDS: KETOROLAC 30 MG/ML VIAL (*BKC) IV PUSH (18:50)
[2024-09-17 19:10] VITALS: BP 131/84; PULSE 114; RESP 18; O2SAT 100
--- NOTE | 2024-09-17 19:21 | ED.GENADULT ---
HPI - General Adult General Chief complaint: Head Injury Stated complaint: Fell-head injury Time Seen by Provider: 09/17/24 17:51 History of Present Illness HPI narrative: Patient is a 29-year-old female who presents ER after falling and striking her head. Occurred about 1 hour prior to arrival. Unsure if she lost consciousness. She is very anxious and having hard time getting her words out. She feels foggy. No change in vision hearing. No vomiting. She is nauseous. Related Data Allergies Allergy/AdvReac Type Severity Reaction Status Date / Time ARTIFICIAL RUBBER AdvReac Intermediate BLISTERS Uncoded 12/22/23 15:56 Review of Systems Review of Systems: All systems reviewed & are unremarkable except as noted in HPI and below Constitutional: Constitutional: Reports no additional constitutional complaints ENT: Reports system reviewed and no additional complaints, except as documented Cardiovascular: Cardiovascular: Reports no additional cardiovascular complaints Respiratory: Respiratory: Reports no additional respiratory complaints Neurologic: Reports system reviewed and no additional complaints, except as documented [facility] Past Medical History Medical History (Updated 09/17/24 @ 19:40 by Evgeny Ruvalcaba MD) Depression History of gestational diabetes Encounter for medical examination to establish care Obesity, Class II, BMI 35-39.9 (normal spontaneous vaginal delivery) Anxiety and depression Hypothyroidism GERD with apnea Obesity Asthma Headache History of anxiety Fall (on) (from) unspecified stairs and steps, initial encounter Family History Family History Grandparent Family history of heart disease in male family member before age 55 Father Colon cancer Other Family history of malignant neoplasm Patient's father is Social History Social History (Updated 10/01/23 @ 08:38 by Samira Bowens) Social History: Caffeine- coffee daily Smoking status: Never smoker Alcohol intake: never Substance use: never Substance use type: does not use Do You Feel Safe in your Home?: No Lack of Transportation: No Lack of Food: Never True Current Housing: I Have Housing Concerned About Future Housing: No Difficulty Paying Gas/Electric Bills: No Difficulty Paying for Meds: No Currently Unemployed: No Education: Bachelor's Degree Difficulty w/ Childcare or Family Care: No Living arrangements: with family Occupation/Education: other Additional occupation/education comments: stay at home mom Gender identity (if verbalized by the patient): Female Spiritual care concerns: No Agree to blood products: Yes Exam Narrative: GENERAL: Well-appearing, well-nourished, and in no acute distress. HEAD: Normocephalic, atraumatic. EYES: PERRL and EOMI. ENT: Mucous membranes moist. NECK: Supple. CHEST: Clear to auscultation. No respiratory distress. HEART: Regular rate and rhythm. Normal peripheral pulses. ABDOMEN: Soft, nontender, nondistended. EXTREMITIES: Normal range of motion. No edema. NEURO: Alert and oriented x3. PSYCH: Normal mood and affect. Course Course Emergency Course: Patient feels markedly improved after anxiety lytics, nausea medication and Toradol. Discussed imaging findings. Discharge home. Vital Signs Vital signs: Vital Signs Temperature 97.4 F L 09/17/24 17:49 Pulse Rate 80 09/17/24 17:49 Respiratory Rate 16 09/17/24 17:49 Blood Pressure 135/84 09/17/24 17:49 Pulse Oximetry 100 09/17/24 17:49 Oxygen Delivery Room Air 09/17/24 17:49 Temperature 97.4 F L 09/17/24 17:49 Pulse Rate 114 H 09/17/24 19:10 Respiratory Rate 18 09/17/24 19:10 Blood Pressure 131/84 09/17/24 19:10 Pulse Oximetry 100 09/17/24 19:10 Oxygen Delivery Room Air 09/17/24 17:49 Medical Decision Making Vital Signs Vital Signs: Vital Signs Temperature 97.4 F L 09/17/24 17:49 Pulse Rate 80 09/17/24 17:49 Respiratory Rate 16 09/17/24 17:49 Blood Pressure 135/84 09/17/24 17:49 Pulse Oximetry 100 09/17/24 17:49 Oxygen Delivery Room Air 09/17/24 17:49 Temperature 97.4 F L 09/17/24 17:49 Pulse Rate 114 H 09/17/24 19:10 Respiratory Rate 18 09/17/24 19:10 Blood Pressure 131/84 09/17/24 19:10 Pulse Oximetry 100 09/17/24 19:10 Oxygen Delivery Room Air 09/17/24 17:49 Imaging Data Radiologist's impression: ITS Impressions Head CT 09/17/24 18:29 Impression: No acute intracranial hemorrhage or suspicious mass effect. Discharge Plan Discharge Clinical Impression: Concussion, Anxiety Patient Disposition: Home, Self-Care Condition: Stable Instructions: Concussion (ED) Additional Instructions: Return ER if you have chest pain with shortness of breath, you can not keep down food water, you lose consciousness, or you have additional concerns. Take Tylenol or ibuprofen as needed for headache. Patient Language: Citizen Of [place] Prescriptions: No Action metformin 500 mg tablet extended release 24 hr 500 mg PO QPM Qty: 90 3RF bupropion HCl [Wellbutrin SR] 100 mg tablet sustained-release 12 hr 100 mg PO QAM Qty: 90 1RF albuterol sulfate 2.5 mg /3 mL (0.083 %) solution for nebulization 2.5 mg inhalation Q4-6H PRN (Reason: shortness of breath or wheezing) Qty: 25 1RF albuterol sulfate 90 mcg/actuation HFA aerosol inhaler 1 inh inhalation Q4H PRN (Reason: shortness of breath or wheezing) Qty: 8.5 3RF Follow-up/Referrals: Allison Lewis MD [Primary Care Provider] - 1 Week
== END 2024-09-17 19:47 | disposition home or self-care (01) ==
PROVIDERS: Emergency Provider Emergency Medicine; PCP Family Medicine
DX: S06.0XAA Concussion with loss of consciousness status unknown, initial encounter (principal); F41.9 Anxiety disorder, unspecified; E03.9 Hypothyroidism, unspecified; W19.XXXA Unspecified fall, initial encounter
CPT/HCPCS: 70450; 96361; 96374; 96375; 99284; J1885; J2060; J2405; J7030